=== PATIENT | male | born 1980 | race Caucasian/White ===

== ENCOUNTER → 2017-10-04 | Outpatient (CLI) | payer OTHER ==
--- NOTE | 2017-10-04 17:34 | DIAGNOSTIC IMAGING REPORT ---
MRI OF THE LUMBAR SPINE WITHOUT IV CONTRAST CLINICAL HISTORY: Low back pain. COMPARISON STUDY: No priors TECHNIQUE: MRI of the lumbar spine is performed utilizing various T1 and T2-weighted sequences in the axial and sagittal planes. IV contrast was not administered for this examination. FINDINGS: Lumbar spine: Vertebral body height is maintained throughout the lumbar spine. There are bilateral pars defects at L5 with 8 mm of anterolisthesis at L5-S1. Alignment is otherwise preserved. The transverse and spinous processes appear intact. No destructive bony lesion is seen. Intervertebral discs: Mild degenerative disc desiccation is seen throughout the lumbar spine, greatest at L4-L5 and L5-S1. Mild to moderate loss of height is seen at L5-S1. Spinal cord: The visualized spinal cord is normal in morphology and signal intensity. The conus medullaris terminates at the level of L2. The nerve roots of the cauda equina are normal in morphology. L1-L2: Unremarkable. L2-L3: Unremarkable. L3-L4: There is minimal disc bulge. The central canal and neural foramina are widely patent. L4-L5: There is broad-based posterior disc bulge with annular fissure. This causes mild bilateral subarticular stenosis. The central canal and neural foramina are widely patent. Mild facet arthropathy is of no consequence. L5-S1: There is posterior disc bulge eccentric to left. There is no significant acquired compromise of the central canal at this level. The disc bulge causes left-sided subarticular stenosis and may impinge on the exiting left L5 nerve root. Facet arthropathy and anterolisthesis cause mild to moderate bilateral neural foraminal stenosis. Sacrum: The visualized sacrum is normal in morphology and signal intensity. Soft tissues: The paraspinous soft tissues are within normal limits. The partially imaged retroperitoneal structures are grossly normal but incompletely assessed. IMPRESSION: 1. There are bilateral pars defects at L5 with grade 1 anterolisthesis at L5-S1. 2. There is no disc herniation or significant acquired compromise of the central canal. 3. Degenerative disc disease as above, greatest at L4-L5 and L5-S1. See discussion for detailed level analysis. Dictated: 10/04/2017 3:39 PM Transcribed: 10/04/2017 5:34 PM [place] Electronically signed by: Justo Redd M.D. 10/05/2017 7:12 AM Dictated Date/Time: 10/04/2017 3:39 PM
== END | disposition home or self-care (01) ==
LOC: C.MRIBC 14:39
PROVIDERS: ATTEND Family Medicine
DX: G89.29 Other chronic pain (principal); M43.16 Spondylolisthesis, lumbar region; M51.17 Intervertebral disc disorders with radiculopathy, lumbosacral region

== ENCOUNTER → 2018-03-27 | Outpatient (CLI) | payer OTHER | END | disposition home or self-care (01) | LOC: C.PATHSPEC 11:58 | PROVIDERS: ATTEND Urology | DX: Z30.2 Encounter for sterilization (principal) ==

== ENCOUNTER 2020-03-06 17:26 | Inpatient (IN) ==
--- OUTSIDE RECORDS SUMMARY | 2020-03-06 17:29 | External Medical Summary | Continuity of Care Document ---
:1980 Author Name Dennis Chong, Provider Address Unavailable Unavailable , Care Team Providers Name Role Phone Sharifa MEDRANO Ashley Unavailable [email or web address], Irene Unavailable [email or web address] Unavailable Unavailable Unavailable Unavailable Unavailable Assessments Assessed Problems:Type 2 diabetes mellitusObesityBMI 38.0-38.9,adult Problems BMI 38.0-38.9,adult (V85.38) (Z68.38) Obesity (278.00) (E66.9) Type 2 diabetes mellitus (250.00) (E11.9) BMI 39.0-39.9,adult (V85.39) (Z68.39) Dyslipidemia (272.4) (E78.5) Metabolic syndrome (277.7) (E88.81) Encounter for vasectomy (V25.2) (Z30.2) Morbid obesity (278.01) (E66.01) Primary hypothyroidism (244.9) (E03.9) Allergies and Adverse Reactions Iodides (Allergy) iodine (Allergy) Medications metFORMIN HCl - 500 MG Oral Tablet; take 1 tablet by m outh daily with food Castillo Rey Start: 13-Mar-2018 Quantity: 30 Refills: 0 Trulicity 1.5 MG/0.5ML Subcutaneous Solu tion Pen-injector; inject ONE pen weekly. DO Sharifa Ashley Start: 13-Mar-2018 Quantity: 1 4 x 0.5 ML Pen Refills: 6 Atorvastatin Calcium 10 MG Oral Tablet; Take 1 tablet daily Start: 13-Mar-2018 Refills: 0 90 Tablet Bottle Levothyroxine Sodium 25 MCG Oral Tablet; TAKE 1 TABLET BY MOUTH EVERY MORNING ON AN EMPTY STOMACH WITH A FULL GLASS OF WATER, WAIT 30 MINUTES TO EAT Start: 13-Mar-2018 Quantity: 30 Refills: 5 Clindamycin Phosphate 1 % External Lotio n; APPLY SPARINGLY AND MASSAGE IN TWICE DAILY. Start: 13-Mar-2018 Refills: 0 60 ML Bottle Diclofenac Sodium 1 % Transdermal Gel; A PPLY TO LOWER EXTREMITIES, 4 GM OF GEL TO AFFECTED AREA 4 TIMES DAILY. DO NOT APPLY MORE THAN 16 GM DAILY TO ANY ONE AFFECTED JOINT. Start: 13-Mar-2018 Refills: 0 100 GM Tube OneTouch Ultra Blue In Vitro Strip; test one time daily Start: 13-Mar-2018 Refills: 0 Vitamin B-12 1000 MCG Sublingual Tablet Sublingual; PLACE TA BLET Daily Start: 14-Mar-2018 Refills: 0 Potassium 99 MG Oral Tablet; TAKE 1 TABLET DAILY. Start: 14-Mar-2018 Refills: 0 Cinnamon 500 MG Oral Capsule; TAKE 2 CAPSULE Before meals Start: 14-Mar-2018 Refills: 0 Magnesium Oxide 400 MG Oral Tablet; TAKE 1 TABLET DAILY. Start: 14-Mar-2018 Quantity: 30 Refills: 3 Vitamin D 1000 UNIT TABS; take wiith largest meal of the day Start: 14-Mar-2018 Refills: 0 Dexamethasone 1 MG Oral Tablet; TAKE 1 T ABLET at 11pm, night before cortisol lab draw. Castillo Rey Start: 14-Mar-2018 Quantity: 1 Refills: 0 Procedures History of Tonsillectomy Status: Complet ed History of vasectomy Status: Completed Immunizations Immunizations not documented Family History Unknown Family Member Family history of malignant neoplasm of Status: Active Comments: Family History prostate (V16.42) (Z80.42) Family history of diabetes mellitus (V18.0) Status: Active Comments: Family History (Z83.3) Family history of cardiac disorder (V17.49) Status: Active Comments: Family History (Z82.49) Father Family history of kidney stones (V18.69) (Z84.1) Status: Act hannah Mother Family history of malignant neoplasm of ovary (V16.41) (Z80. 41) Status: Active Family history of Peritoneal carcinoma (158.9) (C48.2) Statu s: Active Social History - Smoking Status Never smoked tobacco Interventions Discussion/SummaryRegarding his diabetes, discussed carbohydrate counting and limiting simple sugars and starch portions. Increase fiber sources. All beverages must be sugar free. Discussed plate method of portion control. Discussed lowfat diet. Discussed exercise program. Continue home blood sugar monitoring. Follow on medications. He is doing well on the increased Trulicity to 1.5 milligrams weekly and has noticed increased satiety, and as a result has been able to eat smaller portions. Due for HGB A1c, order is inthe [facility], and he is to have that done, along with his thyroid testing before he sees next month. Will work on improved diet, exercise, and weight loss. Discussed ways to stimulate metabolism including eating a healthy breakfast within 1 hr of waking,more frequent, but smaller meals, increase water, fruits, vegetables, and lean proteins, increasing physical activity, and good sleep hygiene. He will continue to work on the plate method of portion con trol, and eating regularly, planning and packing for healthy meals and snacks. Instruction on including lean proteins and fruits/vegetables with every meal and snack were given. Instruction was given on the importance of a nutritious breakfast within 1 hour of waking, and healthy breakfast ideas were given. Instruction was given on eating regularly, but decreasing overall portion sizes, and healthy snack ideas were given. He was instructed to try to eat at the table and not in front of any screen, so as to avoid distracted eating, and an explanation was given as to why this is so important. He willtry to take a regular lunch break rather than eating at his desk. He is doing better with this Instruction was given to try to increase consumption of vegetables and fresh fruits to a total of 5 servings or more per day. Other then non-fat or low-fat milk, he was instructed to drink only non caloric beverages and increase pure water consumption to at least 64-80 oz per day (with an instruction to tryto make at least every other beverage water). We discussed a reasonable exercise plan, given his abilities, as follows: He is to continue his walking program daily (10 min 3x daily after meals) and scheduling a visit to the gym at least once week. Counseling done. Discussed stress management. Discussed importance of good self-care. Discussed managing cues and cravings and comfort eating. Discussed increasing physical activity. Discussed importance of positive self- talk and re-phrasing negative statements in a more positive way that enables hea lthy change. We also discussed making changes out of inherent worth and value rather than criticism. Discussed managing holiday eating. He is aware that I am leaving the area next month and I have recommended that he followup with Dr. Paris Robin at [facility] for weight management and he was given her contact info today. Approximately 30 Minutes was spent with the patient. Greater than 50% of time with patient was spent on counseling and coordinating care. Counseling time included counseling on chronic disease management, and healthy lifestyle changes including diet, exercise, and behavioral changes, which were very specific to the patient's medical issues, limitations, and needs. Plan of Treatment Planned Observations Planned Goals not documented Results No Known Results Results not documented Encounters Appointment; Urology, Nursing Station 07-Jun-2018 8:20 Encounter Diagnosis: Problem not documented Appointment; Ashley Skaggs DO 16-May-2018 9:00 Encounter Diagnosis: Problem not documented Appointment; Urology, Nursing Station 10-May-2018 8:20 Encounter Diagnosis: Problem not documented Appointment; Bhargav Gauthier M.D. 10-Apr-2018 16:30 Encounter Diagnosis: Problem not documented Appointment; Irma Merida R.D. 04-Apr-2018 9:00 Encounter Diagnosis: Problem not documented Appointment; Bhargav Gauthier M.D. 27-Mar-2018 15:10 Encounter Diagnosis: Problem not documented Appointment; Urology, Room 8 27-Mar-2018 15:00 Encounter Diagnosis: Problem not documented Appointment; Irene Rey M.D. 14-Mar-2018 9:00 Encounter Diagnosis: Problem not documented Appointment; Nurse Scarlet 14-Mar-2018 8:30 Encounter Diagnosis: Problem not documented Appointment; Ashley Skaggs DO 20-Jun-2018 8:40 Encounter Diagnosis: Problem not documented
[2020-03-06] MEDS ORDERED: FAMOTIDINE 20MG IV PUSH 20 MG/5 ML SYR IV STA (17:36)
[2020-03-06] MEDS ORDERED: ACETAMINOPHEN 1,000 MG/100 ML VIAL IV STA (17:36)
[2020-03-06] MEDS ORDERED: PROCHLORPERAZINE 2 ML IV ONE (17:36)
[2020-03-06] MEDS ORDERED: DiphenhydrAMINE HCL 50 MG/ML VIAL IV STA (17:36)
[2020-03-06] MEDS ORDERED: SODIUM CHLORIDE 0.9% 1000ML 1,000 ML IV ONE (17:39)
[2020-03-06] MEDS ORDERED: SODIUM CHLORIDE 0.9% 1000ML 2,000 ML IV ONE (18:11)
[2020-03-06 18:17] LABS: Basophils # (auto) 0.02 K/uL (0-0.2); Basophils % (auto) 0.2 %; Eosinophils # (auto) 0.05 K/uL (0-0.5); Eosinophils % (auto) 0.5 %; Hematocrit (blood only) 38.7 % (42-52); Hemoglobin 14.2 g/dL (14.0-18.0); Immature Granulocytes # (auto) 0.03 K/uL (0.00-0.02); Immature Granulocytes % (auto) 0.3 %; Lymphocytes # (auto) 1.59 K/uL (1.2-3.4); Lymphocytes % (auto) 15.5 %; Mean Corpuscular Hemoglobin 31.4 pg (25-34); Mean Corpuscular Hgb Conc 36.7 g/dL (32-36); Mean Corpuscular Volume 85.6 fL (80-100); Mean Platelet Volume 9.5 fL (7.4-10.4); Monocytes # (auto) 0.63 K/uL (0.11-0.59); Monocytes % (auto) 6.2 %; Neutrophils # (auto) 7.91 K/uL (1.4-6.5); Neutrophils % (auto) 77.3 %; Platelet Count 299 K/uL (130-400); RDW Coefficient of Variation 11.7 % (11.5-14.5); RDW Standard Deviation 36.4 fL (36.4-46.3); Red Blood Count 4.52 M/uL (4.7-6.1); White Blood Count 10.23 K/uL (4.8-10.8)
[2020-03-06 18:34] LABS: Partial Thromboplastin Time 28.5 Seconds (21.0-31.0); Prothrombin Time 10.9 Seconds (9.0-12.0)
[2020-03-06 18:35] LABS: Alanine Aminotransferase 30 U/L (12-78); Albumin Level 4.2 gm/dl (3.4-5.0); Aspartate Aminotransferase 23 U/L (15-37); BUN Creatinine Ratio 12.2 (10-20); Blood Urea Nitrogen 10 mg/dl (7-18); Calcium 8.4 mg/dl (8.5-10.1); Carbon Dioxide 17 mmol/L (21-32); Chloride 91 mmol/L (98-107); Creatinine Clr Calc Pharmacy 123.9 ml/min; Est GFR (Non-African American) 112.2; Glucose 166 mg/dl (70-99); Lipase 84 U/L (73-393); Magnesium 1.5 mg/dl (1.8-2.4); Potassium 3.4 mmol/L (3.5-5.1); Sodium 120 mmol/L (136-145)
--- NOTE | 2020-03-06 18:44 | XRay Report ---
XR chest 1V portable CLINICAL HISTORY: Chest pain. Fever. COMPARISON STUDY: No previous studies for comparison. FINDINGS: Lung volumes are normal. Lungs are clear. There is no pneumothorax or pleural effusion. Car diac size is normal. Mediastinal contours are normal. There is no evidence for pulmonary edema. IMPRESSION: No acute cardiopulmonary findings. ACT 112: Negative or not required by law. Electronically signed by: Jin Shearer M.D. 03/06/2020 6:42 PM
[2020-03-06 18:52] LABS: Albumin Globulin Ratio 1.4 (0.9-2); Alkaline Phosphatase 57 U/L (45-117); Bilirubin,Total 1.2 mg/dl (0.2-1); Globulin 2.9 gm/dl (2.5-4.0); Phosphorus 1.3 mg/dl (2.5-4.9); Total Protein 7.1 gm/dl (6.4-8.2); Troponin I < 0.015 ng/ml (0-0.045)
--- NOTE | 2020-03-06 18:59 | Emergency Department Note ---
Impression & Plan Metabolic acidosis, Fever, Nausea & vomiting, Acute hyponatremia, Hypokalemia, Hypomagnesemia, Hypophosphatemia ED Provider Note NAME: DOC MALDONADO AGE: 39 SEX: M ARRIVES VIA: Ambulance INFORMANT: Patient, ED PROVIDER(S): Lionel Vega MD CHIEF COMPLAINT: Abdominal pain, n/v PLAN: Disposition: Admit MEDICAL DECISION MAKING: The patient is a pleasant 39-year-old gentleman who presents emergency department with acute onset nausea vomiting since this morning we reports he is unable to keep anything down. He denies any similar episodes in the past. He does report recently taking ibuprofen regularly for some back pain. He denies any regular alcohol use. He denies any marijuana use. He is a non-smoker. Prior to today the port patient reports he has been feeling healthy denies fevers chills, cough congestion, diarrhea, urinary symptoms. He denies any known contacts with individuals diagnosed with COVID-19. However he does report he has been going out in public without a mask. On arrival the patient is uncomfortable/diaphoretic. febrile to 38.0 with HR 100s and vital signs otherwise stable. He has mild epigastric tenderness without guarding or rebound. He appears clinically dry. EKG unremarkable without evidence of acute ischemia. CXR negative. WBC, hemoglobin and platelets within normal limits. Hyponatremia with sodium of 120 with potassium of 3.4, magnesium 1.5 and phosphorus 1.3. He does have a metabolic acidosis with bicarb of 17 and anion gap 12. Glucose 166 but no h/o diabetes. LFTs are unremarkable. Lipase is not elevated. Troponin negative/undetectable. CT ab pelvis was performed an d negative for acute process. Given the patient's fevers with unclear etiology a COVID-19 test was performed. However it certainly could be related to foodborne illness versus viral gastroenteritis. Upon reevaluation the patient was feeling improved after IV fluid hydration (3L NSS bolus), antacids and antiemetics. However given his significant lab abnormalities reasonable to proceed with admission. Patient is agreeable with this. Case was discussed with Dr. Medina, [facility] hospitalist, who will evaluate the patient for admission. Triage Nursing notes reviewed and agree them. Prior medical records reviewed Vital Signs: reviewed and remarkable for no significant abnormalities Differential diagnosis: Appendicitis, testicular torsion, infections, diverticulitis, UTI, obstruction, mesenteric ischemia, aortic pathology, inflammatory bowel disease, renal colic, PUD, pancreatitis, biliary pathology, hernia, volvulus, constipation, as well as other pathologies. ER treatment provided: See below. Diagnostics interpreted by me: ECG: Normal sinus rhythm, 93 bpm, no ectopy, no overt ST elevation or depression, QTC 460, QRS 96. Cardiac Monitoring: An order for continuous cardiac monitoring was placed and demonstrated Normal sinus rhythm, 93 bpm, no ectopy. Laboratory studies: See below Imaging studies: XR chest 1V portable CLINICAL HISTORY: Chest pain. Fever. COMPARISON STUDY: No previous studies for comparison. FINDINGS: Lung volumes are normal. Lungs are clear. There is no pneumothorax or pleural effusion. Cardiac size is normal. Mediastinal contours are normal. There is no evidence for pulmonary edema. IMPRESSION: No acute cardiopulmonary findings. -- CT OF THE ABDOMEN AND PELVIS WITH CONTRAST CLINICAL HISTORY: Abdominal pain, nausea and vomiting. COMPARISON STUDY: None. TECHNIQUE: Following IV administration of 93 mL of Optiray-320, axial images of the abdomen and pelvis were obtained from the lung bases to the proximal femurs. Images were reviewed in the axial, sagittal, and coronal planes. IV contrast was administered without complication. Automated exposure control was utilized for the study. A dose lowering technique was utilized adhering to the principles of ALARA. CT DOSE: 1383.92 mGy.cm FINDINGS: Lung bases are unremarkable. There is probable fatty infiltration of the liver. No pneumatosis, free air or portal venous gas is present. The spleen, adrenal glands, kidneys and pancreas are unremarkable. There is no hydronephrosis. Nephrograms are symmetric. There is no evidence for a bowel obstruction. The appendix is normal. The caliber and wall thickness of small and large bowel are normal. Mild bladder wall thickening is likely due to underdistention. No lymphadenopathy is present. There is no abscess. Grade I anterolisthesis of L5 on S1 due to bilateral L5 pars defects is noted. IMPRESSION: 1. Normal appendix. No bowel obstruction. No bowel wall thickening. 2. Mild bladder wall thickening. This is likely due to underdistention although could be correlated with urinalysis. 3. Probable fatty infiltration of the liver. Consultation(s): Case was discussed with Dr. Medina, [facility] hospitalist, who will evaluate the patient for admission. HPI: The patient is a pleasant 39-year-old gentleman who presents emergency department with acute onset nausea vomiting since this morning we reports he is unable to keep anything down. He denies any similar episodes in the past. He does report recently taking ibuprofen regularly for some back pain. He denies any regular alcohol use. He denies any marijuana use. He is a non-smoker. Prior to today the port patient reports he has been feeling healthy denies fevers chills, cough congestion, diarrhea, urinary symptoms. He denies any known contacts with individuals diagnosed with COVID-19. However he does report he has been going out in public without a mask. ROS: See above HPI for pertinent positives & negatives. A total of 10 systems reviewed and were otherwise negative. PAST MEDICAL HISTORY:See Below PAST SURGICAL HISTORY:See Below FAMILY HISTORY:See Below SOCIAL HISTORY:See Below HOME MEDICATIONS:See Below ALLERGIES:See Below VITALS:See Below PHYSICAL EXAMINATION: GENERAL: Awake, alert, uncomfortable-appearing, in no distress HENT: Normocephalic, atraumatic. Oropharynx with dry mucous membranes and otherwise unremarkable. EYES: Normal conjunctiva. Sclera non-icteric. NECK: Supple. No nuchal rigidity. FROM. No JVD. RESPIRATORY: Clear to auscultation. CARDIAC: Regular rate, normal rhythm. Extremities warm and well perfused. Pulses equal. ABDOMEN: Soft, non-distended. Mild epigastric tenderness to palpation. No rebound or guarding. No masses. RECTAL: Deferred. MUSCULOSKELETAL: Chest examination reveals no tenderness. The back is symmetrical on inspection without obvious abnormality. There is no CVA tenderness to palpation. No joint edema. LOWER EXTREMITIES: Calves are equal size bilaterally and non-tender. No edema. No discoloration. NEURO: Normal sensorium. No sensory or motor deficits noted. SKIN: Diaphoretic. No rash or jaundice noted. ED COURSE: Critical Care: I have personally spent greater than 35 minutes of critical care time in the direct management of this patient. This includes bedside care, interpretation of diagnostic studies, and testing, discussion with consultants, patient, and family members, and other required patient management activities. This 35 minutes is in excess of all separately billable procedures. 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 Beliefs That Will Affect Care: None Current Living Situation: Family Other Information That Helps Us Care for You: No Feels Safe at Home: Yes Safety Concerns: Afraid for Self Smoking Status: Never smoker Hx Alcohol Use: No Hx Substance Use: No Allergies Allergies Allergy/AdvReac Type Severity Reaction Status Date / Time iodine Allergy Rash Verified 03/06/20 20:14 Home Meds Home Medications Medication Instructions Recorded Confirmed Potassium Tab 99 mg PO DAILY 03/06/20 03/06/20 atorvastatin [Lipitor] 10 mg PO DAILY 03/06/20 03/06/20 cholecalciferol (vitamin D3) 25 mcg PO DAILY 03/06/20 03/06/20 [Vitamin D3] cinnamon bark [Cinnamon] 500 mg PO DAILY 03/06/20 03/06/20 diclofenac sodium [Voltaren] 4 g TOPICAL QID PRN 03/06/20 03/06/20 dulaglutide [Trulicity] 0.75 mg SUBCUT WK 03/06/20 03/06/20 ferrous sulfate [Iron (ferrous 0 mg PO DAILY 03/06/20 03/06/20 sulfate)] levothyroxine 25 mcg PO DAILY 03/06/20 03/06/20 magnesium oxide 400 mg PO DAILY 03/06/20 03/06/20 metformin 500 mg PO DAILY 03/06/20 03/06/20 multivitamin 1 tab PO DAILY 03/06/20 03/06/20 vitamin B complex 1 tab PO DAILY 03/06/20 03/06/20 Results & Data (ED) Vital Signs Vital Signs - 24 hr 03/06/20 17:26 03/06/20 17:30 03/06/20 17:32 Temperature 38 C H Temperature Source Oral Pulse Rate 94 H 94 H 95 H Pulse Rate [Finger] Pulse Rate from SpO2 Sensor 96 H Pulse Rhythm Regular Regular Pulse Strength Normal Respiratory Rate 26 H 26 H 24 Respiratory Pattern Tachypnea Blood Pressure 106/87 106/87 Blood Pressure [Left Arm] Blood Pressure Mean 93 97 Blood Pressure Mean [Left Arm] Blood Pressure Position Lying Pulse Oximetry 99 99 99 Oxygen Delivery Method Room Air Room Air Sepsis Recent Fever Within 48 Hours Yes Sepsis New/Unexplained Change in Mental Status No Sepsis Action Taken by Nursing Physician Notified 03/06/20 17:34 03/06/20 17:45 03/06/20 17:54 Temperature Temperature Source Pulse Rate 95 H 100 H 102 H Pulse Rate [Finger] Pulse Rate from SpO2 Sensor 97 H 100 H 102 H Pulse Rhythm Pulse Strength Respiratory Rate 23 22 23 Respiratory Pattern Blood Pressure 149/97 H Blood Pressure [Left Arm] Blood Pressure Mean 121 Blood Pressure Mean [Left Arm] Blood Pressure Position Pulse Oximetry 99 98 100 Oxygen Delivery Method Sepsis Recent Fever Within 48 Hours Sepsis New/Unexplained Change in Mental Status Sepsis Action Taken by Nursing 03/06/20 18:00 03/06/20 18:01 03/06/20 18:15 Temperature Temperature Source Pulse Rate 90 87 87 Pulse Rate [Finger] Pulse Rate from SpO2 Sensor 90 88 88 Pulse Rhythm Pulse Strength Respiratory Rate 22 20 22 Respiratory Pattern Blood Pressure 142/110 H Blood Pressure [Left Arm] Blood Pressure Mean 116 Blood Pressure Mean [Left Arm] Blood Pressure Position Pulse Oximetry 99 100 98 Oxygen Delivery Method Sepsis Recent Fever Within 48 Hours Sepsis New/Unexplained Change in Mental Status Sepsis Action Taken by Nursing 03/06/20 18:30 03/06/20 18:31 03/06/20 19:25 Temperature Temperature Source Pulse Rate 81 87 Pulse Rate [Finger] 88 Pulse Rate from SpO2 Sensor 89 85 Pulse Rhythm Pulse Strength Respiratory Rate 16 22 24 Respiratory Pattern Blood Pressure 131/93 Blood Pressure [Left Arm] 140/87 Blood Pressure Mean 112 Blood Pressure Mean [Left Arm] 104 Blood Pressure Position Pulse Oximetry 96 97 98 Oxygen Delivery Method Room Air Sepsis Recent Fever Within 48 Hours Sepsis New/Unexplained Change in Mental Status Sepsis Action Taken by Nursing 03/06/20 20:09 03/06/20 20:24 Temperature Temperature Source Pulse Rate Pulse Rate [Finger] 92 H 95 H Pulse Rate from SpO2 Sensor Pulse Rhythm Pulse Strength Respiratory Rate 18 18 Respiratory Pattern Blood Pressure Blood Pressure [Left Arm] 154/101 H 172/98 H Blood Pressure Mean Blood Pressure Mean [Left Arm] 118 122 Blood Pressure Position Pulse Oximetry 98 95 Oxygen Delivery Method Room Air Room Air Sepsis Recent Fever Within 48 Hours Sepsis New/Unexplained Change in Mental Status Sepsis Action Taken by Nursing Laboratory Data Attestation: I reviewed the patient's lab results. Result diagrams: 03/06/20 18:01 03/06/20 18:01 Lab Results 03/06/20 03/06/20 03/06/20 Range/Units 17:51 18:01 18:01 WBC 10.23 (4.8-10.8) K/uL RBC 4.52 L (4.7-6.1) M/uL Hgb 14.2 (14.0-18.0) g/dL Hct 38.7 L (42-52) % MCV 85.6 (80-100) fL MCH 31.4 (25-34) pg MCHC 36.7 H (32-36) g/dL RDW Std Deviation 36.4 (36.4-46.3) fL RDW Coeff of Jordy 11.7 (11.5-14.5) % Plt Count 299 (130-400) K/uL MPV 9.5 (7.4-10.4) fL Immature Gran % (Auto) 0.3 % Neut % (Auto) 77.3 % Lymph % (Auto) 15.5 % [place] % (Auto) 6.2 % Eos % (Auto) 0.5 % Baso % (Auto) 0.2 % Neut # (Auto) 7.91 H (1.4-6.5) K/uL Lymph # (Auto) 1.59 (1.2-3.4) K/uL [place] # (Auto) 0.63 H (0.11-0.59) K/uL Eos # (Auto) 0.05 (0-0.5) K/uL Baso # (Auto) 0.02 (0-0.2) K/uL Immature Gran # (Auto) 0.03 H (0.00-0.02) K/uL PT 10.9 (9.0-12.0) Seconds INR 1.0 (0.9-1.1) APTT 28.5 (21.0-31.0) Seconds PTT Ratio 1.0 Sodium (136-145) mmol/L Potassium (3.5-5.1) mmol/L Chloride (98-107) mmol/L Carbon Dioxide (21-32) mmol/L Anion Gap (3-11) BUN (7-18) mg/dl Creatinine (0.6-1.4) mg/dl Est Cr Clr Drug Dosing ml/min Est GFR ( Amer) Est GFR (Non-Af Amer) BUN/Creatinine Ratio (10-20) Glucose (70-99) mg/dl POC Glucose 194 H (70-99) mg/dl Osmolality (280-300) mOsm/kg Calcium (8.5-10.1) mg/dl Phosphorus (2.5-4.9) mg/dl Magnesium (1.8-2.4) mg/dl Total Bilirubin (0.2-1) mg/dl AST (15-37) U/L ALT (12-78) U/L Alkaline Phosphatase (45-117) U/L Troponin I (0-0.045) ng/ml Total Protein (6.4-8.2) gm/dl Albumin (3.4-5.0) gm/dl Globulin (2.5-4.0) gm/dl Albumin/Globulin Ratio (0.9-2) Lipase (73-393) U/L Ethyl Alcohol mg/dL (0-3) mg/dl SARS-CoV-2 RNA (RT-PCR) 03/06/20 03/06/20 03/06/20 Range/Units 18:01 18:01 18:06 WBC (4.8-10.8) K/uL RBC (4.7-6.1) M/uL Hgb (14.0-18.0) g/dL Hct (42-52) % MCV (80-100) fL MCH (25-34) pg MCHC (32-36) g/dL RDW Std Deviation (36.4-46.3) fL RDW Coeff of Jordy (11.5-14.5) % Plt Count (130-400) K/uL MPV (7.4-10.4) fL Immature Gran % (Auto) % Neut % (Auto) % Lymph % (Auto) % [place] % (Auto) % Eos % (Auto) % Baso % (Auto) % Neut # (Auto) (1.4-6.5) K/uL Lymph # (Auto) (1.2-3.4) K/uL [place] # (Auto) (0.11-0.59) K/uL Eos # (Auto) (0-0.5) K/uL Baso # (Auto) (0-0.2) K/uL Immature Gran # (Auto) (0.00-0.02) K/uL PT (9.0-12.0) Seconds INR (0.9-1.1) APTT (21.0-31.0) Seconds PTT Ratio Sodium 120 L (136-145) mmol/L Potassium 3.4 L (3.5-5.1) mmol/L Chloride 91 L (98-107) mmol/L Carbon Dioxide 17 L (21-32) mmol/L Anion Gap 12.0 H (3-11) BUN 10 (7-18) mg/dl Creatinine 0.82 (0.6-1.4) mg/dl Est Cr Clr Drug Dosing 123.9 ml/min Est GFR ( Amer) 130.0 Est GFR (Non-Af Amer) 112.2 BUN/Creatinine Ratio 12.2 (10-20) Glucose 166 H (70-99) mg/dl POC Glucose (70-99) mg/dl Osmolality 252 L (280-300) mOsm/kg Calcium 8.4 L (8.5-10.1) mg/dl Phosphorus 1.3 L* (2.5-4.9) mg/dl Magnesium 1.5 L (1.8-2.4) mg/dl Total Bilirubin 1.2 H (0.2-1) mg/dl AST 23 (15-37) U/L ALT 30 (12-78) U/L Alkaline Phosphatase 57 (45-117) U/L Troponin I < 0.015 (0-0.045) ng/ml Total Protein 7.1 (6.4-8.2) gm/dl Albumin 4.2 (3.4-5.0) gm/dl Globulin 2.9 (2.5-4.0) gm/dl Albumin/Globulin Ratio 1.4 (0.9-2) Lipase 84 (73-393) U/L Ethyl Alcohol mg/dL < 3.0 (0-3) mg/dl SARS-CoV-2 RNA (RT-PCR) 03/06/20 Range/Units 18:24 WBC (4.8-10.8) K/uL RBC (4.7-6.1) M/uL Hgb (14.0-18.0) g/dL Hct (42-52) % MCV (80-100) fL MCH (25-34) pg MCHC (32-36) g/dL RDW Std Deviation (36.4-46.3) fL RDW Coeff of Jordy (11.5-14.5) % Plt Count (130-400) K/uL MPV (7.4-10.4) fL Immature Gran % (Auto) % Neut % (Auto) % Lymph % (Auto) % [place] % (Auto) % Eos % (Auto) % Baso % (Auto) % Neut # (Auto) (1.4-6.5) K/uL Lymph # (Auto) (1.2-3.4) K/uL [place] # (Auto) (0.11-0.59) K/uL Eos # (Auto) (0-0.5) K/uL Baso # (Auto) (0-0.2) K/uL Immature Gran # (Auto) (0.00-0.02) K/uL PT (9.0-12.0) Seconds INR (0.9-1.1) APTT (21.0-31.0) Seconds PTT Ratio Sodium (136-145) mmol/L Potassium (3.5-5.1) mmol/L Chloride (98-107) mmol/L Carbon Dioxide (21-32) mmol/L Anion Gap (3-11) BUN (7-18) mg/dl Creatinine (0.6-1.4) mg/dl Est Cr Clr Drug Dosing ml/min Est GFR ( Amer) Est GFR (Non-Af Amer) BUN/Creatinine Ratio (10-20) Glucose (70-99) mg/dl POC Glucose (70-99) mg/dl Osmolality (280-300) mOsm/kg Calcium (8.5-10.1) mg/dl Phosphorus (2.5-4.9) mg/dl Magnesium (1.8-2.4) mg/dl Total Bilirubin (0.2-1) mg/dl AST (15-37) U/L ALT (12-78) U/L Alkaline Phosphatase (45-117) U/L Troponin I (0-0.045) ng/ml Total Protein (6.4-8.2) gm/dl Albumin (3.4-5.0) gm/dl Globulin (2.5-4.0) gm/dl Albumin/Globulin Ratio (0.9-2) Lipase (73-393) U/L Ethyl Alcohol mg/dL (0-3) mg/dl SARS-CoV-2 RNA (RT-PCR) Cancelled Administered Medications Discontinued Medications Diphenhydramine HCl (Benadryl) 25 mg IV NOW STA Stop: 03/06/20 17:37 Last Admin: 03/06/20 17:49 Dose: 25 mg Documented by: [id number] Acetaminophen (Ofirmev) 1,000 mg in 100 mls @ 400 mls/hr IV NOW STA Stop: 03/06/20 17:50 Last Infusion: 03/06/20 18:04 Dose: 0 mls/hr Documented by: [id number] Admin: 03/06/20 17:49 Dose: 400 mls/hr Documented by: [id number] Famotidine (Pepcid 20mg Iv Push) 20 mg in 5 mls @ 2.5 mls/min IV NOW STA Stop: 03/06/20 17:37 Last Admin: 03/06/20 17:50 Dose: 2.5 mls/min Documented by: [id number] Prochlorperazine (Compazine) 2 mls @ 1 mls/min IV ONE ONE Stop: 03/06/20 17:37 Last Admin: 03/06/20 17:50 Dose: 1 mls/min Documented by: [id number] Sodium Chloride (Nss 1000ml) 1,000 mls @ 999 mls/hr IV .Q1H1M ONE Stop: 03/06/20 18:39 Last Infusion: 03/06/20 18:36 Dose: 0 mls/hr Documented by: [id number] Admin: 03/06/20 17:49 Dose: 999 mls/hr Documented by: [id number] Sodium Chloride (Nss 1000ml) 2,000 mls @ 999 mls/hr IV .Q2H1M ONE Stop: 03/06/20 20:11 Last Infusion: 03/06/20 20:16 Dose: 0 mls/hr Documented by: [id number] Admin: 03/06/20 18:11 Dose: 999 mls/hr Documented by: [id number] Magnesium Sulfate/Dextrose (Magnesium Sulfate / D5w) 1 gm in 100 mls @ 200 mls/hr IV Q30M KARLY Stop: 03/06/20 19:42 Last Infusion: 03/06/20 20:32 Dose: 0 mls/hr Documented by: [id number] Admin: 03/06/20 20:00 Dose: 200 mls/hr Documented by: [id number] Infusion: 03/06/20 19:56 Dose: 0 mls/hr Documented by: [id number] Admin: 03/06/20 19:23 Dose: 200 mls/hr Documented by: [id number] Potassium Phosphate 9 mmol/ (Sodium Chloride) 253 mls @ 88 mls/hr IV ONE ONE Stop: 03/06/20 22:07 Last Admin: 03/06/20 19:28 Dose: 88 mls/hr Documented by: [id number] Ioversol (Optiray 320 100ml) 93 ml IV ONCE PRN PRN Reason: Interaction Checking Stop: 03/10/20 19:10 Last Admin: 03/06/20 19:12 Dose: 93 ml Documented by: [id number] Potassium Chloride (Klor-Con M20) 20 meq PO NOW ONE Stop: 03/06/20 20:21 Last Admin: 03/06/20 20:22 Dose: 20 meq Documented by: [id number] Blood Pressure Blood Pressure Findings: Elevated blood pressure Blood Pressure Disposition: elevated BP felt to be situational Discharge Plan Visit Data *Final* Discharge Date/Time: 03/06/20 21:27 Chief Complaint: Illness ED Provider: Lionel Vega Discharge Problem: Metabolic acidosis, Fever, Nausea & vomiting, Acute hyponatremia, Hypokalemia, Hypomagnesemia, Hypophosphatemia Patient Disposition: Admitted As Inpatient Discharge Instructions Interventions: ED Discharge Assessment Last Done: 03/06/20 21:27 Discharge Problem: Fever Qualifiers: Fever type: unspecified Qualified Code(s): R50.9 - Fever, unspecified Nausea & vomiting Qualifiers: Vomiting type: unspecified Vomiting Intractability: non-intractable Qualified Code(s): R11.2 - Nausea with vomiting, unspecified
[2020-03-06] MEDS ORDERED: POTASSIUM PHOS 3 MMOL/1 ML INFUSION IV STA (19:01)
[2020-03-06] MEDS ORDERED: IOVERSOL 100ml IV PRN (19:11)
[2020-03-06] MEDS ORDERED: POTASSIUM PHOSPHATE 9 MMOL in SODIUM CHLORIDE 0.9% 250 ML IV ONE (19:15)
[2020-03-06] MEDS: MAGNESIUM SULFATE / D5W 1 GM/100 ML BAG IV SCH ×2 (19:23→20:00)
--- NOTE | 2020-03-06 19:24 | CT Scan Report ---
CT OF THE ABDOMEN AND PELVIS WITH CONTRAST CLINICAL HISTORY: Abdominal pain, nausea and vomiting. COMPARISON STUDY: None. TECHNIQUE: Following IV administration of 93 mL of Optiray-320, axial images of the abdomen and pelvi s were obtained from the lung bases to the proximal femurs. Images were reviewed in the axial, sagitt al, and coronal planes. IV contrast was administered without complication. Automated exposure contro l was utilized for the study. A dose lowering technique was utilized adhering to the principles of A LEAH. CT DOSE: 1383.92 mGy.cm FINDINGS: Lung bases are unremarkable. There is probable fatty infiltration of the liver. No pneumato sis, free air or portal venous gas is present. The spleen, adrenal glands, kidneys and pancreas are u nremarkable. There is no hydronephrosis. Nephrograms are symmetric. There is no evidence for a bowel obstruction. The appendix is normal. The caliber and wall thickness of small and large bowel are norm al. Mild bladder wall thickening is likely due to underdistention. No lymphadenopathy is present. The re is no abscess. Grade I anterolisthesis of L5 on S1 due to bilateral L5 pars defects is noted. IMPRESSION: 1. Normal appendix. No bowel obstruction. No bowel wall thickening. 2. Mild bladder wall thickening. This is likely due to underdistention although could be correlated w ith urinalysis. 3. Probable fatty infiltration of the liver. ACT 112: Negative or not required by law. Electronically signed by: Jin Shearer M.D. 03/06/2020 7:23 PM
[2020-03-06] MEDS ORDERED: POTASSIUM CHLORIDE / WTR 10 MEQ/100 ML PLCT IV ONE (19:51)
[2020-03-06] MEDS ORDERED: POTASSIUM CHLORIDE 20 MEQ TABCR PO ONE (20:20)
--- NOTE | 2020-03-06 20:34 | History & Physical Report ---
Date of Service March 06, 2020 Assessment & Plan (1) Hyponatremia: Hypovolemic hyponatremia secondary to acute viral gastritis Hypokalemia, hypomagnesemia, hypophosphatemia secondary to GI illness Situational hypertension DM 2 on oral medications, well-controlled as of recent outpatient hemoglobin A1c of 5.6 every 2019 hypothyroidism, euthyroid as of outpatient TSH from last year hyperlipidemia on statin Rx Medical telemetry Supportive management for viral illness for now Careful correction of sodium No IVF until repeat sodium obtained. Hyponatremia work-up May benefit from Nephrology consult. Replace electrolytes Recheck TSH ISS BG goal 1 40-1 80, update hemoglobin A1c DVT prophylaxis per Lovenox subcu Full code Text document was generated using [employer] voice recognition software. It may contain grammatical or spelling errors. Kindly contact undersigned for clarification of any documentation item in question. History of Present Illness Chief Complaint: Abdominal pain, emesis Primary Care Provider: Dhruv Portillo MD History obtained from patient and records. Medical history significant for DM 2 on oral medications, hypothyroidism, hyperlipidemia. This morning, patient woke up with minimal epigastric discomfort followed by nausea and multiple episodes of emesis. Could not keep anything down. Not related to food intake. No diarrhea. No known sick contacts, recent out-of-town travel, unusual food intake. No prior episodes. Low-grade fever. No chest pain, no S OB, no cough symptoms.. Medical History as above Surgical History : None Family History : Prostate cancer, ovarian cancer, diabetes Personal/Social history : Non-smoker, no EtOH intake, insurance sales Allergies Allergy/AdvReac Type Severity Reaction Status Date / Time iodine Allergy Rash Verified 03/06/20 20:14 Home Medications Home Medications Medication Instructions Recorded Confirmed Type Potassium Tab 99 mg PO DAILY 03/06/20 03/06/20 History atorvastatin [Lipitor] 10 mg PO DAILY 03/06/20 03/06/20 History cholecalciferol (vitamin D3) 25 mcg PO DAILY 03/06/20 03/06/20 History [Vitamin D3] cinnamon bark [Cinnamon] 500 mg PO DAILY 03/06/20 03/06/20 History diclofenac sodium [Voltaren] 4 g TOPICAL QID PRN 03/06/20 03/06/20 History dulaglutide [Trulicity] 0.75 mg SUBCUT WK 03/06/20 03/06/20 History ferrous sulfate [Iron (ferrous 0 mg PO DAILY 03/06/20 03/06/20 History sulfate)] levothyroxine 25 mcg PO DAILY 03/06/20 03/06/20 History magnesium oxide 400 mg PO DAILY 03/06/20 03/06/20 History metformin 500 mg PO DAILY 03/06/20 03/06/20 History multivitamin 1 tab PO DAILY 03/06/20 03/06/20 History vitamin B complex 1 tab PO DAILY 03/06/20 03/06/20 History Past Med/Surg History Social History Preferred Language: Senegalese Communication Ability: Effective Dump Truck Operator Required: No Beliefs That Will Affect Care: None Current Living Situation: Family Other Information That Helps Us Care for You: No Feels Safe at Home: Yes Safety Concerns: Afraid for Self Smoking Status: Never smoker Hx Alcohol Use: No Hx Substance Use: No Review of Systems Review of Systems: As per HPI, all 10 systems reviewed, all other ROS negative Physical Exam Physical Exam: GENERAL: Comfortable, obese, pleasant, no respiratory distress SKIN: Normal color, warm HEENT: [place] palpebral conjunctivae, no ptosis, dry buccal mucosa NECK : Supple, short neck, no tenderness CHEST : CTA, no tenderness HEART : RRR, no obvious murmurs ABDOMEN: Some distention, minimal epigastric tenderness EXTREMITIES : No LE swelling/tenderness, no other conspicuous deformities noted NEUROLOGIC : Coherent, no facial asymmetry, no other gross focality Results & Data Results & Data ([facility]) Vital Signs (Past 12 Hours) Vital Signs Temp Pulse Pulse Resp BP BP Pulse Ox 03/06/20 20:24 95 H 18 172/98 H 95 03/06/20 20:09 92 H 18 154/101 H 98 03/06/20 19:25 88 24 140/87 98 03/06/20 18:31 87 22 97 03/06/20 18:30 81 16 131/93 96 03/06/20 18:15 87 22 98 03/06/20 18:01 87 20 142/110 H 100 03/06/20 18:00 90 22 99 03/06/20 17:54 102 H 23 149/97 H 100 03/06/20 17:45 100 H 22 98 03/06/20 17:34 95 H 23 99 03/06/20 17:32 95 H 24 106/87 99 03/06/20 17:30 94 H 26 H 99 03/06/20 17:26 38 C H 94 H 26 H 106/87 99 Laboratory Results Laboratory Results WBC 10.23 K/uL (4.8-10.8) 03/06/20 18:01 RBC 4.52 M/uL (4.7-6.1) L 03/06/20 18:01 Hgb 14.2 g/dL (14.0-18.0) 03/06/20 18:01 Hct 38.7 % (42-52) L 03/06/20 18:01 MCV 85.6 fL (80-100) 03/06/20 18: MCH 31.4 pg (25-34) 03/06/20 18: MCHC 36.7 g/dL (32-36) H 03/06/20 18:01 RDW Std Deviation 36.4 fL (36.4-46.3) 03/06/20 18: RDW Coeff of Jordy 11.7 % (11.5-14.5) 03/06/20 18: Plt Count 299 K/uL (130-400) 03/06/20 18: MPV 9.5 fL (7.4-10.4) 03/06/20 18: Immature Gran % (Auto) 0.3 % 03/06/20 18:01 Neut % (Auto) 77.3 % 03/06/20 18:01 Lymph % (Auto) 15.5 % 03/06/20 18:01 [place] % (Auto) 6.2 % 03/06/20 18:01 Eos % (Auto) 0.5 % 03/06/20 18:01 Baso % (Auto) 0.2 % 03/06/20 18:01 Neut # (Auto) 7.91 K/uL (1.4-6.5) H 03/06/20 18:01 Lymph # (Auto) 1.59 K/uL (1.2-3.4) 03/06/20 18:01 [place]chran # (Auto) 0.63 K/uL (0.11-0.59) H 03/06/20 18:01 Eos # (Auto) 0.05 K/uL (0-0.5) 03/06/20 18:01 Baso # (Auto) 0.02 K/uL (0-0.2) 03/06/20 18:01 Immature Gran # (Auto) 0.03 K/uL (0.00-0.02) H 03/06/20 18:01 PT 10.9 Seconds (9.0-12.0) 03/06/20 18: INR 1.0 (0.9-1.1) 03/06/20 18: APTT 28.5 Seconds (21.0-31.0) 03/06/20 18: PTT Ratio 1.0 03/06/20 18: Sodium 120 mmol/L (136-145) L 03/06/20 18: Potassium 3.4 mmol/L (3.5-5.1) L 03/06/20 18: Chloride 91 mmol/L (98-107) L 03/06/20 18: Carbon Dioxide 17 mmol/L (21-32) L 03/06/20 18: Anion Gap 12.0 (3-11) H 03/06/20 18:01 BUN 10 mg/dl (7-18) 03/06/20 18: Creatinine 0.82 mg/dl (0.6-1.4) 03/06/20 18: Est Cr Clr Drug Dosing 123.9 ml/min 03/06/20 18:01 Est GFR ( Amer) 130.0 03/06/20 18:01 Est GFR (Non-Af Amer) 112.2 03/06/20 18:01 BUN/Creatinine Ratio 12.2 (10-20) 03/06/20 18:01 Glucose 166 mg/dl (70-99) H 03/06/20 18:01 POC Glucose 194 mg/dl (70-99) H 03/06/20 17:51 Osmolality 252 mOsm/kg (280-300) L 03/06/20 18:06 Calcium 8.4 mg/dl (8.5-10.1) L 03/06/20 18:01 Phosphorus 1.3 mg/dl (2.5-4.9) L* 03/06/20 18: Magnesium 1.5 mg/dl (1.8-2.4) L 03/06/20 18:01 Total Bilirubin 1.2 mg/dl (0.2-1) H 03/06/20 18:01 AST 23 U/L (15-37) 03/06/20 18: ALT 30 U/L (12-78) 03/06/20 18:01 Alkaline Phosphatase 57 U/L (45-117) 03/06/20 18: Troponin I < 0.015 ng/ml (0-0.045) 03/06/20 18: Total Protein 7.1 gm/dl (6.4-8.2) 03/06/20 18: Albumin 4.2 gm/dl (3.4-5.0) 03/06/20 18: Globulin 2.9 gm/dl (2.5-4.0) 03/06/20 18: Albumin/Globulin Ratio 1.4 (0.9-2) 03/06/20 18: Lipase 84 U/L (73-393) 03/06/20 18: Ethyl Alcohol mg/dL < 3.0 mg/dl (0-3) 03/06/20 18:[address] abdomen pelvis: 1. Normal appendix. No bowel obstruction. No bowel wall thickening. 2. Mild bladder wall thickening. This is likely due to underdistention although could be correlated with urinalysis. 3. Probable fatty infiltration of the liver. Chest x-ray : No acute cardiopulmonary findings. EKG as per my interpretation :Rate 95, NSR, normal axis, no ischemia
[2020-03-06] MEDS ORDERED: OXYCODONE HCL IR 5 MG TAB (IMMEDIATE RELEASE) PO PRN (21:51)
[2020-03-06] MEDS ORDERED: CARBOHYDRATES FOR HYPOGLYCEMIA PO PRN (21:51)
[2020-03-06] MEDS ORDERED: GLUCAGON FOR INJ 1 MG VIAL SQ PRN (21:51)
[2020-03-06] MEDS ORDERED: PROMETHAZINE HCL 12.5 MG in SODIUM CHLORIDE 0.9% 50 ML IV PRN (21:51)
[2020-03-06] MEDS ORDERED: MoRPHine SULFATE 4 MG/ML 1 ML CARP\\VIAL IV PRN (21:51)
[2020-03-06] MEDS ORDERED: GLUCOSE 40% GEL 15 GM TUBE PO PRN (21:51)
[2020-03-06] MEDS ORDERED: GLUCOSE 10 TABS/TUBE PO PRN (21:51)
[2020-03-06] MEDS ORDERED: DEXTROSE 50% 50 ML SYRINGE IV PRN (21:51)
[2020-03-06] MEDS ORDERED: POTASSIUM PHOS 3 MMOL/1 ML INFUSION IV ONE (22:08)
[2020-03-06] MEDS ORDERED: POTASSIUM PHOSPHATE 30 MMOL in SODIUM CHLORIDE 0.9% 500 ML IV ONE (22:30)
[2020-03-06] MEDS: INSULIN ASPART 100 UNITS/ML 3 ML PEN SC SCH (22:31)
[2020-03-07 00:28] LABS: Base Excess VBG -3.1 mEq/L; HCO3 VBG 22 mmol/L; PCO2 VBG 41 mmHg (38-50); PO2 VBG 41 mmHg; pH VBG 7.35 (7.36-7.41)
[2020-03-07 01:09] LABS: Basophils # (auto) 0.01 K/uL (0-0.2); Basophils % (auto) 0.1 %; Eosinophils # (auto) 0.02 K/uL (0-0.5); Eosinophils % (auto) 0.2 %; Hematocrit (blood only) 38.7 % (42-52); Hemoglobin 14.1 g/dL (14.0-18.0); Immature Granulocytes # (auto) 0.02 K/uL (0.00-0.02); Immature Granulocytes % (auto) 0.2 %; Lymphocytes # (auto) 1.37 K/uL (1.2-3.4); Lymphocytes % (auto) 14.5 %; Mean Corpuscular Hemoglobin 31.6 pg (25-34); Mean Corpuscular Hgb Conc 36.4 g/dL (32-36); Mean Corpuscular Volume 86.8 fL (80-100); Mean Platelet Volume 9.1 fL (7.4-10.4); Monocytes # (auto) 0.65 K/uL (0.11-0.59); Monocytes % (auto) 6.9 %; Neutrophils % (auto) 78.1 %; Platelet Count 253 K/uL (130-400); RDW Coefficient of Variation 11.8 % (11.5-14.5); RDW Standard Deviation 37.4 fL (36.4-46.3); Red Blood Count 4.46 M/uL (4.7-6.1); White Blood Count 9.47 K/uL (4.8-10.8)
[2020-03-07 01:30] LABS: BUN Creatinine Ratio 10.7 (10-20); Calcium 8.3 mg/dl (8.5-10.1); Creatinine Clr Calc Pharmacy 156.9 ml/min; Est GFR (African American) 133.4; Est GFR (Non-African American) 115.1; Magnesium 2.6 mg/dl (1.8-2.4); Potassium 5.2 mmol/L (3.5-5.1)
[2020-03-07] MEDS ORDERED: SODIUM CHLORIDE 0.45 % 1,000 ML IV ONE (02:01)
[2020-03-07] MEDS ORDERED: INSULIN HUMAN REGULAR PER UNIT 10 UNITS in SYRINGE 9.9 ML IV ONE (02:45)
[2020-03-07] MEDS ORDERED: DEXTROSE 50% 50 ML SYRINGE IV ONE (02:45)
[2020-03-07] MEDS ORDERED: CALCIUM GLUCONATE 10% 1,000 MG in SODIUM CHLORIDE 0.9% 50 ML IV STA (04:33)
[2020-03-07] MEDS: LEVOTHYROXINE SODIUM 25 MCG TABLET PO SCH (04:54)
[2020-03-07 06:49] LABS: BUN Creatinine Ratio 9.4 (10-20); Calcium 8.9 mg/dl (8.5-10.1); Creatinine Clr Calc Pharmacy 139.1 ml/min; Est GFR (African American) 127.5; Phosphorus 3.2 mg/dl (2.5-4.9); Potassium 4.4 mmol/L (3.5-5.1)
[2020-03-07] MEDS ORDERED: DEXTROSE 5% 1,000 ML IV SCH (07:00)
[2020-03-07] MEDS: MULTIVITAMIN TAB PO SCH (07:19)
[2020-03-07] MEDS: VITAMIN B COMPLEX TAB PO SCH (07:20)
[2020-03-07] MEDS: ENOXAPARIN INJ 40 MG/0.4 ML SYR SQ SCH (07:20)
[2020-03-07] MEDS: ATORVASTATIN 10 MG TAB PO SCH (07:20)
[2020-03-07] MEDS: FERROUS SULFATE 325 MG TAB PO SCH (07:20)
--- NOTE | 2020-03-07 07:21 | Hospitalist Progress Note ---
Date of Service March 07, 2020 Assessment & Plan (1) Hyponatremia: Hypovolemic hyponatremia secondary to acute viral gastritis Sodium 120 at 6 PM on March 06, sodium increased to 135 this morning. Hyponatremia work-up Careful correction of sodium Nephrology consulted -sodium level overcorrected, target sodium should be around 126. Give DDAVP 2 MCG once, give D5 water at 250 mL's per hour. Repeat BMP today Hypokalemia, hypomagnesemia, hypophosphatemia secondary to GI illness Replace electrolytes Supportive management for viral illness for now Medical telemetry Situational hypertension, cont. to monitor DM 2 on oral medications, well-controlled as of recent outpatient hemoglobin A1c of 5.6 every 2020 ISS BG goal 140-180, update hemoglobin A1c Hypothyroidism, euthyroid as of outpatient TSH from last year Recheck TSH Hyperlipidemia on statin Rx DVT prophylaxis per Lovenox subcu Full code Admission and Anticipated Discharge Date Admission Date: March 06, 2020 Subjective Patient is sitting up in a chair, in no acute distress. He says that he does not feel nauseous anymore, and denies any vomiting this morning. He also denies any fevers, chills, chest pain or shortness of breath. No abdominal pain. Admitted for hyponatremia, nausea vomiting, overcorrected too fast with sodium. Nephrology following. Review of Systems Review of Systems: All systems reviewed & are unremarkable except as noted in HPI & below Constitutional: no fever and no chills Respiratory: no cough and no dyspnea Cardiovascular: no chest pain and no palpitations Gastrointestinal: no abdominal pain, no nausea and no vomiting Physical Exam Physical Exam: GENERAL: Young obese, pleasant, male, sitting up in the chair, in no acute distress HEENT: Normocephalic, atraumatic, EOMI, PERRL, [place] palpebral conjunctivae, no ptosis NECK : Supple, short neck, no tenderness CHEST : CTAB, no wheezing, rhonchi or crackles HEART : RRR, no obvious murmurs ABDOMEN: Positive bowel sounds, soft, obese, nontender to palpation, some distention EXTREMITIES : No LE swelling/tenderness, moves extremities spontaneously SKIN: Normal color, warm, dry NEURO/ PSYCH : Alert and oriented x3, answers questions appropriately, no facial asymmetry, speech fluent, moves extremities spontaneously and without difficulty Results & Data Results & Data ([facility]) Vital Signs (Past 12 Hours) Vital Signs Temp Pulse Pulse Resp BP BP Pulse Ox 03/07/20 07:07 36.9 C 88 19 125/80 94 03/07/20 03:11 36.7 C 91 H 20 129/77 98 03/07/20 00:28 98 H 03/06/20 23:40 36.6 C 83 20 129/80 99 03/06/20 21:52 36.7 C 91 H 18 143/80 H 98 03/06/20 21:03 36.7 C 87 18 143/91 H 97 03/06/20 20:24 95 H 18 172/98 H 95 03/06/20 20:09 92 H 18 154/101 H 98 03/06/20 19:25 88 24 140/87 98 Laboratory Results 03/07/20 03/07/20 03/07/20 Range/Units 05:51 05:51 01:00 WBC (4.8-10.8) K/uL RBC (4.7-6.1) M/uL Hgb (14.0-18.0) g/dL Hct (42-52) % MCV (80-100) fL MCH (25-34) pg MCHC (32-36) g/dL RDW Std Deviation (36.4-46.3) fL RDW Coeff of Jordy (11.5-14.5) % Plt Count (130-400) K/uL MPV (7.4-10.4) fL Immature Gran % (Auto) % Neut % (Auto) % Lymph % (Auto) % [place]er % (Auto) % Eos % (Auto) % Baso % (Auto) % Neut # (Auto) (1.4-6.5) K/uL Lymph # (Auto) (1.2-3.4) K/uL [place]er # (Auto) (0.11-0.59) K/uL Eos # (Auto) (0-0.5) K/uL Baso # (Auto) (0-0.2) K/uL Immature Gran # (Auto) (0.00-0.02) K/uL PT (9.0-12.0) Seconds INR (0.9-1.1) APTT (21.0-31.0) Seconds PTT Ratio VBG pH (7.36-7.41) VBG pCO2 (38-50) mmHg VBG pO2 mmHg VBG HCO3 mmol/L VBG O2 Saturation % VBG Base Excess mEq/L Sodium 135 L 130 L D (136-145) mmol/L Potassium 4.4 D 5.2 H D (3.5-5.1) mmol/L Chloride 107 104 (98-107) mmol/L Carbon Dioxide 25 23 (21-32) mmol/L Anion Gap 3.0 3.0 (3-11) BUN 8 8 (7-18) mg/dl Creatinine 0.86 0.77 (0.6-1.4) mg/dl Est Cr Clr Drug Dosing 139.1 156.9 ml/min Est GFR ( Amer) 127.5 133.4 Est GFR (Non-Af Amer) 110.0 115.1 BUN/Creatinine Ratio 9.4 L 10.7 (10-20) Glucose 92 111 H (70-99) mg/dl POC Glucose (70-99) mg/dl Estimat Average Glucose Hemoglobin A1c Osmolality (280-300) mOsm/kg Lactate (0.4-2.0) mmol/L Calcium 8.9 8.3 L (8.5-10.1) mg/dl Phosphorus 3.2 D (2.5-4.9) mg/dl Magnesium 2.6 H (1.8-2.4) mg/dl Total Bilirubin (0.2-1) mg/dl AST (15-37) U/L ALT (12-78) U/L Alkaline Phosphatase (45-117) U/L Troponin I (0-0.045) ng/ml Total Protein (6.4-8.2) gm/dl Albumin 4.0 (3.4-5.0) gm/dl Globulin (2.5-4.0) gm/dl Albumin/Globulin Ratio (0.9-2) Lipase (73-393) U/L TSH Pending Urine Osmolality (500-800) mOsm/kg Ur Random Sodium mmol/L Ethyl Alcohol mg/dL (0-3) mg/dl SARS-CoV-2 RNA (RT-PCR) 03/07/20 03/07/20 03/07/20 Range/Units 01:00 00:16 00:16 WBC 9.47 (4.8-10.8) K/uL RBC 4.46 L (4.7-6.1) M/uL Hgb 14.1 (14.0-18.0) g/dL Hct 38.7 L (42-52) % MCV 86.8 (80-100) fL MCH 31.6 (25-34) pg MCHC 36.4 H (32-36) g/dL RDW Std Deviation 37.4 (36.4-46.3) fL RDW Coeff of Jordy 11.8 (11.5-14.5) % Plt Count 253 (130-400) K/uL MPV 9.1 (7.4-10.4) fL Immature Gran % (Auto) 0.2 % Neut % (Auto) 78.1 % Lymph % (Auto) 14.5 % Towner % (Auto) 6.9 % Eos % (Auto) 0.2 % Baso % (Auto) 0.1 % Neut # (Auto) 7.40 H (1.4-6.5) K/uL Lymph # (Auto) 1.37 (1.2-3.4) K/uL [place] # (Auto) 0.65 H (0.11-0.59) K/uL Eos # (Auto) 0.02 (0-0.5) K/uL Baso # (Auto) 0.01 (0-0.2) K/uL Immature Gran # (Auto) 0.02 (0.00-0.02) K/uL PT (9.0-12.0) Seconds INR (0.9-1.1) APTT (21.0-31.0) Seconds PTT Ratio VBG pH 7.35 L (7.36-7.41) VBG pCO2 41 (38-50) mmHg VBG pO2 41 mmHg VBG HCO3 22 mmol/L VBG O2 Saturation 73.0 % VBG Base Excess -3.1 mEq/L Sodium (136-145) mmol/L Potassium (3.5-5.1) mmol/L Chloride (98-107) mmol/L Carbon Dioxide (21-32) mmol/L Anion Gap (3-11) BUN (7-18) mg/dl Creatinine (0.6-1.4) mg/dl Est Cr Clr Drug Dosing ml/min Est GFR ( Amer) Est GFR (Non-Af Amer) BUN/Creatinine Ratio (10-20) Glucose (70-99) mg/dl POC Glucose (70-99) mg/dl Estimat Average Glucose Hemoglobin A1c Osmolality (280-300) mOsm/kg Lactate 0.9 (0.4-2.0) mmol/L Calcium (8.5-10.1) mg/dl Phosphorus (2.5-4.9) mg/dl Magnesium (1.8-2.4) mg/dl Total Bilirubin (0.2-1) mg/dl AST (15-37) U/L ALT (12-78) U/L Alkaline Phosphatase (45-117) U/L Troponin I (0-0.045) ng/ml Total Protein (6.4-8.2) gm/dl Albumin (3.4-5.0) gm/dl Globulin (2.5-4.0) gm/dl Albumin/Globulin Ratio (0.9-2) Lipase (73-393) U/L TSH Urine Osmolality (500-800) mOsm/kg Ur Random Sodium mmol/L Ethyl Alcohol mg/dL (0-3) mg/dl SARS-CoV-2 RNA (RT-PCR) 03/06/20 03/06/20 03/06/20 Range/Units 22:29 22:15 22:15 WBC (4.8-10.8) K/uL RBC (4.7-6.1) M/uL Hgb (14.0-18.0) g/dL Hct (42-52) % MCV (80-100) fL MCH (25-34) pg MCHC (32-36) g/dL RDW Std Deviation (36.4-46.3) fL RDW Coeff of Jordy (11.5-14.5) % Plt Count (130-400) K/uL MPV (7.4-10.4) fL Immature Gran % (Auto) % Neut % (Auto) % Lymph % (Auto) % [place] % (Auto) % Eos % (Auto) % Baso % (Auto) % Neut # (Auto) (1.4-6.5) K/uL Lymph # (Auto) (1.2-3.4) K/uL [place] # (Auto) (0.11-0.59) K/uL Eos # (Auto) (0-0.5) K/uL Baso # (Auto) (0-0.2) K/uL Immature Gran # (Auto) (0.00-0.02) K/uL PT (9.0-12.0) Seconds INR (0.9-1.1) APTT (21.0-31.0) Seconds PTT Ratio VBG pH (7.36-7.41) VBG pCO2 (38-50) mmHg VBG pO2 mmHg VBG HCO3 mmol/L VBG O2 Saturation % VBG Base Excess mEq/L Sodium (136-145) mmol/L Potassium (3.5-5.1) mmol/L Chloride (98-107) mmol/L Carbon Dioxide (21-32) mmol/L Anion Gap (3-11) BUN (7-18) mg/dl Creatinine (0.6-1.4) mg/dl Est Cr Clr Drug Dosing ml/min Est GFR ( Amer) Est GFR (Non-Af Amer) BUN/Creatinine Ratio (10-20) Glucose (70-99) mg/dl POC Glucose 125 H (70-99) mg/dl Estimat Average Glucose Hemoglobin A1c Osmolality (280-300) mOsm/kg Lactate (0.4-2.0) mmol/L Calcium (8.5-10.1) mg/dl Phosphorus (2.5-4.9) mg/dl Magnesium (1.8-2.4) mg/dl Total Bilirubin (0.2-1) mg/dl AST (15-37) U/L ALT (12-78) U/L Alkaline Phosphatase (45-117) U/L Troponin I (0-0.045) ng/ml Total Protein (6.4-8.2) gm/dl Albumin (3.4-5.0) gm/dl Globulin (2.5-4.0) gm/dl Albumin/Globulin Ratio (0.9-2) Lipase (73-393) U/L TSH Urine Osmolality 69 L (500-800) mOsm/kg Ur Random Sodium 15 mmol/L Ethyl Alcohol mg/dL (0-3) mg/dl SARS-CoV-2 RNA (RT-PCR) 03/06/20 03/06/20 03/06/20 Range/Units 18:24 18:06 18:06 WBC (4.8-10.8) K/uL RBC (4.7-6.1) M/uL Hgb (14.0-18.0) g/dL Hct (42-52) % MCV (80-100) fL MCH (25-34) pg MCHC (32-36) g/dL RDW Std Deviation (36.4-46.3) fL RDW Coeff of Jordy (11.5-14.5) % Plt Count (130-400) K/uL MPV (7.4-10.4) fL Immature Gran % (Auto) % Neut % (Auto) % Lymph % (Auto) % [place] % (Auto) % Eos % (Auto) % Baso % (Auto) % Neut # (Auto) (1.4-6.5) K/uL Lymph # (Auto) (1.2-3.4) K/uL [place] # (Auto) (0.11-0.59) K/uL Eos # (Auto) (0-0.5) K/uL Baso # (Auto) (0-0.2) K/uL Immature Gran # (Auto) (0.00-0.02) K/uL PT (9.0-12.0) Seconds INR (0.9-1.1) APTT (21.0-31.0) Seconds PTT Ratio VBG pH (7.36-7.41) VBG pCO2 (38-50) mmHg VBG pO2 mmHg VBG HCO3 mmol/L VBG O2 Saturation % VBG Base Excess mEq/L Sodium (136-145) mmol/L Potassium (3.5-5.1) mmol/L Chloride (98-107) mmol/L Carbon Dioxide (21-32) mmol/L Anion Gap (3-11) BUN (7-18) mg/dl Creatinine (0.6-1.4) mg/dl Est Cr Clr Drug Dosing ml/min Est GFR ( Amer) Est GFR (Non-Af Amer) BUN/Creatinine Ratio (10-20) Glucose (70-99) mg/dl POC Glucose (70-99) mg/dl Estimat Average Glucose Pending Hemoglobin A1c Pending Osmolality 252 L (280-300) mOsm/kg Lactate (0.4-2.0) mmol/L Calcium (8.5-10.1) mg/dl Phosphorus (2.5-4.9) mg/dl Magnesium (1.8-2.4) mg/dl Total Bilirubin (0.2-1) mg/dl AST (15-37) U/L ALT (12-78) U/L Alkaline Phosphatase (45-117) U/L Troponin I (0-0.045) ng/ml Total Protein (6.4-8.2) gm/dl Albumin (3.4-5.0) gm/dl Globulin (2.5-4.0) gm/dl Albumin/Globulin Ratio (0.9-2) Lipase (73-393) U/L TSH Urine Osmolality (500-800) mOsm/kg Ur Random Sodium mmol/L Ethyl Alcohol mg/dL (0-3) mg/dl SARS-CoV-2 RNA (RT-PCR) Cancelled 03/06/20 03/06/20 03/06/20 Range/Units 18:01 18:01 18:01 WBC (4.8-10.8) K/uL RBC (4.7-6.1) M/uL Hgb (14.0-18.0) g/dL Hct (42-52) % MCV (80-100) fL MCH (25-34) pg MCHC (32-36) g/dL RDW Std Deviation (36.4-46.3) fL RDW Coeff of Jordy (11.5-14.5) % Plt Count (130-400) K/uL MPV (7.4-10.4) fL Immature Gran % (Auto) % Neut % (Auto) % Lymph % (Auto) % [place] % (Auto) % Eos % (Auto) % Baso % (Auto) % Neut # (Auto) (1.4-6.5) K/uL Lymph # (Auto) (1.2-3.4) K/uL [place] # (Auto) (0.11-0.59) K/uL Eos # (Auto) (0-0.5) K/uL Baso # (Auto) (0-0.2) K/uL Immature Gran # (Auto) (0.00-0.02) K/uL PT 10.9 (9.0-12.0) Seconds INR 1.0 (0.9-1.1) APTT 28.5 (21.0-31.0) Seconds PTT Ratio 1.0 VBG pH (7.36-7.41) VBG pCO2 (38-50) mmHg VBG pO2 mmHg VBG HCO3 mmol/L VBG O2 Saturation % VBG Base Excess mEq/L Sodium 120 L (136-145) mmol/L Potassium 3.4 L (3.5-5.1) mmol/L Chloride 91 L (98-107) mmol/L Carbon Dioxide 17 L (21-32) mmol/L Anion Gap 12.0 H (3-11) BUN 10 (7-18) mg/dl Creatinine 0.82 (0.6-1.4) mg/dl Est Cr Clr Drug Dosing 123.9 ml/min Est GFR ( Amer) 130.0 Est GFR (Non-Af Amer) 112.2 BUN/Creatinine Ratio 12.2 (10-20) Glucose 166 H (70-99) mg/dl POC Glucose (70-99) mg/dl Estimat Average Glucose Hemoglobin A1c Osmolality (280-300) mOsm/kg Lactate (0.4-2.0) mmol/L Calcium 8.4 L (8.5-10.1) mg/dl Phosphorus 1.3 L* (2.5-4.9) mg/dl Magnesium 1.5 L (1.8-2.4) mg/dl Total Bilirubin 1.2 H (0.2-1) mg/dl AST 23 (15-37) U/L ALT 30 (12-78) U/L Alkaline Phosphatase 57 (45-117) U/L Troponin I < 0.015 (0-0.045) ng/ml Total Protein 7.1 (6.4-8.2) gm/dl Albumin 4.2 (3.4-5.0) gm/dl Globulin 2.9 (2.5-4.0) gm/dl Albumin/Globulin Ratio 1.4 (0.9-2) Lipase 84 (73-393) U/L TSH Urine Osmolality (500-800) mOsm/kg Ur Random Sodium mmol/L Ethyl Alcohol mg/dL < 3.0 (0-3) mg/dl SARS-CoV-2 RNA (RT-PCR) 03/06/20 03/06/20 Range/Units 18:01 17:51 WBC 10.23 (4.8-10.8) K/uL RBC 4.52 L (4.7-6.1) M/uL Hgb 14.2 (14.0-18.0) g/dL Hct 38.7 L (42-52) % MCV 85.6 (80-100) fL MCH 31.4 (25-34) pg MCHC 36.7 H (32-36) g/dL RDW Std Deviation 36.4 (36.4-46.3) fL RDW Coeff of Jordy 11.7 (11.5-14.5) % Plt Count 299 (130-400) K/uL MPV 9.5 (7.4-10.4) fL Immature Gran % (Auto) 0.3 % Neut % (Auto) 77.3 % Lymph % (Auto) 15.5 % Towner % (Auto) 6.2 % Eos % (Auto) 0.5 % Baso % (Auto) 0.2 % Neut # (Auto) 7.91 H (1.4-6.5) K/uL Lymph # (Auto) 1.59 (1.2-3.4) K/uL [place]er # (Auto) 0.63 H (0.11-0.59) K/uL Eos # (Auto) 0.05 (0-0.5) K/uL Baso # (Auto) 0.02 (0-0.2) K/uL Immature Gran # (Auto) 0.03 H (0.00-0.02) K/uL PT (9.0-12.0) Seconds INR (0.9-1.1) APTT (21.0-31.0) Seconds PTT Ratio VBG pH (7.36-7.41) VBG pCO2 (38-50) mmHg VBG pO2 mmHg VBG HCO3 mmol/L VBG O2 Saturation % VBG Base Excess mEq/L Sodium (136-145) mmol/L Potassium (3.5-5.1) mmol/L Chloride (98-107) mmol/L Carbon Dioxide (21-32) mmol/L Anion Gap (3-11) BUN (7-18) mg/dl Creatinine (0.6-1.4) mg/dl Est Cr Clr Drug Dosing ml/min Est GFR ( Amer) Est GFR (Non-Af Amer) BUN/Creatinine Ratio (10-20) Glucose (70-99) mg/dl POC Glucose 194 H (70-99) mg/dl Estimat Average Glucose Hemoglobin A1c Osmolality (280-300) mOsm/kg Lactate (0.4-2.0) mmol/L Calcium (8.5-10.1) mg/dl Phosphorus (2.5-4.9) mg/dl Magnesium (1.8-2.4) mg/dl Total Bilirubin (0.2-1) mg/dl AST (15-37) U/L ALT (12-78) U/L Alkaline Phosphatase (45-117) U/L Troponin I (0-0.045) ng/ml Total Protein (6.4-8.2) gm/dl Albumin (3.4-5.0) gm/dl Globulin (2.5-4.0) gm/dl Albumin/Globulin Ratio (0.9-2) Lipase (73-393) U/L TSH Urine Osmolality (500-800) mOsm/kg Ur Random Sodium mmol/L Ethyl Alcohol mg/dL (0-3) mg/dl SARS-CoV-2 RNA (RT-PCR)
[2020-03-07] MEDS: INSULIN ASPART 100 UNITS/ML 3 ML PEN SC SCH ×4 (07:24→21:09)
[2020-03-07] MEDS ORDERED: DESMOPRESSIN ACETATE 2 MCG in SODIUM CHLORIDE 0.9% 50 ML IV ONE (10:30)
--- NOTE | 2020-03-07 10:33 | Nephrology Consultation ---
Date of Consultation March 07, 2020 Assessment & Plan (1) Hyponatremia: Patient with hyponatremia likely due to hypovolemia in setting of vomiting and poor p.o. intake. Admission sodium was 120 at 6 PM on 03/06/2020. Sodium is up to 135 this morning. Rate of correction is about 6 in 24 hours. Target sodium today should be around 126. We will give DDAVP 2 mcg once. We will give D5 water at 250 mL/h. Will repeat a BMP at 2 PM. (2) Hypokalemia: Patient admitted with potassium of 3.4 which corrected with supplementation. Potassium is 4.4 today. No need for additional supplements (3) Hypophosphatemia: Patient admitted with a phosphorus of 1.3 which is improved with potassium supplementation. No need for additional supplements today. History of Present Illness Reason for Consultation: Hyponatremia Requesting Physician: Ladarius Guzman MD Attending Physician: Ladarius Guzman MD History of Present Illness This is a 39-year-old male with history of type 2 diabetes on oral medications, hypothyroidism, hyperlipidemia who was admitted on 03/06/2020 with weakness found to have sodium of 120 at 6 PM. He had a serum osmolality of 252, urine osmolality of 69 and urine sodium of 15. Patient reports vomiting for 1 day prior to admission. He then developed severe muscle cramps and felt dizzy. He was also found to have a potassium of 3.4 on admission and phosphorus of 1.3. He was not able to drink or eat the day prior to admission. He received IV fluids and electrolyte repletion. His sodium is up to 135 this morning. No shortness of breath or urinary symptoms. No leg swelling. No vomiting or abdominal pain this morning. Allergies Allergy/AdvReac Type Severity Reaction Status Date / Time iodine Allergy Rash Verified 03/06/20 20:14 Home Medications Home Medications Medication Instructions Recorded Confirmed Type Potassium Tab 99 mg PO DAILY 03/06/20 03/06/20 History atorvastatin [Lipitor] 10 mg PO DAILY 03/06/20 03/06/20 History cholecalciferol (vitamin D3) 25 mcg PO DAILY 03/06/20 03/06/20 History [Vitamin D3] cinnamon bark [Cinnamon] 500 mg PO DAILY 03/06/20 03/06/20 History diclofenac sodium [Voltaren] 4 g TOPICAL QID PRN 03/06/20 03/06/20 History dulaglutide [Trulicity] 0.75 mg SUBCUT WK 03/06/20 03/06/20 History ferrous sulfate [Iron (ferrous 0 mg PO DAILY 03/06/20 03/06/20 History sulfate)] levothyroxine 25 mcg PO DAILY 03/06/20 03/06/20 History magnesium oxide 400 mg PO DAILY 03/06/20 03/06/20 History metformin 500 mg PO DAILY 03/06/20 03/06/20 History multivitamin 1 tab PO DAILY 03/06/20 03/06/20 History vitamin B complex 1 tab PO DAILY 03/06/20 03/06/20 History Patient History Social History Preferred Language: Tuvaluan Communication Ability: 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 Gastrointestinal: Abdomen is soft, non distended, non tender, bowel sounds are present CVS: Regular rate and rhythm. No murmurs, rubs or gallops Musculoskeletal: No joint or muscle tenderness Extremities: Non tender, no edema, peripheral pulses are present Neuro: Oriented, no tremors, no focal neurological deficits Skin: No rashes Results & Data Vital Signs (Past 12 Hours) Vital Signs Temp Pulse Pulse Resp BP Pulse Ox 03/07/20 07:07 36.9 C 88 19 125/80 94 03/07/20 03:11 36.7 C 91 H 20 129/77 98 03/07/20 00:28 98 H 03/06/20 23:40 36.6 C 83 20 129/80 99 Laboratory Results 03/07/20 05:51 03/06/20 03/06/20 03/07/20 18:01 18:01 01:00 WBC 10.23 9.47 RBC 4.52 L 4.46 L MCV 85.6 86.8 MCH 31.4 31.6 MCHC 36.7 H 36.4 H RDW Std Deviation 36.4 37.4 RDW Coeff of Jordy 11.7 11.8 Plt Count 299 253 MPV 9.5 9.1 Phosphorus 1.3 L* Albumin 4.2 03/07/20 03/07/20 01:00 05:51 WBC RBC MCV MCH MCHC RDW Std Deviation RDW Coeff of Jordy Plt Count MPV Phosphorus 3.2 D Albumin 4.0
[2020-03-07] MEDS: DEXTROSE 5% 1,000 ML IV SCH ×4 (10:51→23:06)
--- NOTE | 2020-03-07 12:15 | Electrocardiogram Report ---
Test Reason : Blood Pressure : / mmHG Vent. Rate : 093 BPM Atrial Rate : 093 BPM P-R Int : 198 ms QRS Dur : 096 ms QT Int : 370 ms P-R-T Axes : 029 -21 013 degrees QTc Int : 460 ms Normal sinus rhythm Normal ECG When compared with ECG of 26-AUG-2012 22:35, No significant change was found Confirmed by Luis Benavides ([id number]) on 03/07/2020 12:15:41 PM Referred By: REFERRED SELF Confirmed By:Luis Benavides
[2020-03-07 14:25] LABS: BUN Creatinine Ratio 7.9 (10-20); Calcium 9.1 mg/dl (8.5-10.1); Creatinine Clr Calc Pharmacy 111.8 ml/min; Est GFR (African American) 101.5; Est GFR (Non-African American) 87.6; Potassium 4.5 mmol/L (3.5-5.1)
[2020-03-07] MEDS: ACETAMINOPHEN 325 MG TAB PO PRN (16:13)
[2020-03-08] MEDS: DEXTROSE 5% 1,000 ML IV SCH ×3 (02:53→09:27)
[2020-03-08] MEDS: LEVOTHYROXINE SODIUM 25 MCG TABLET PO SCH (05:35)
[2020-03-08 06:06] LABS: Estimated Average Glucose 114 mg/dl; Hemoglobin A1C 5.6 % (4.5-5.6)
[2020-03-08 06:34] LABS: Hematocrit (blood only) 34.9 % (42-52); Hemoglobin 12.7 g/dL (14.0-18.0); Mean Corpuscular Hemoglobin 31.9 pg (25-34); Mean Corpuscular Hgb Conc 36.4 g/dL (32-36); Mean Corpuscular Volume 87.7 fL (80-100); Mean Platelet Volume 9.5 fL (7.4-10.4); Platelet Count 249 K/uL (130-400); RDW Coefficient of Variation 11.8 % (11.5-14.5); RDW Standard Deviation 37.7 fL (36.4-46.3); Red Blood Count 3.98 M/uL (4.7-6.1); White Blood Count 8.96 K/uL (4.8-10.8)
[2020-03-08 07:05] LABS: BUN Creatinine Ratio 8.1 (10-20); Calcium 8.6 mg/dl (8.5-10.1); Creatinine Clr Calc Pharmacy 150.3 ml/min; Est GFR (African American) 131.3; Est GFR (Non-African American) 113.3; Magnesium 2.2 mg/dl (1.8-2.4); Phosphorus 3.6 mg/dl (2.5-4.9)
[2020-03-08 07:15] LABS: Potassium 3.6 mmol/L (3.5-5.1)
[2020-03-08] MEDS: ACETAMINOPHEN 325 MG TAB PO PRN (07:46)
[2020-03-08] MEDS: ENOXAPARIN INJ 40 MG/0.4 ML SYR SQ SCH (07:47)
[2020-03-08] MEDS: ATORVASTATIN 10 MG TAB PO SCH (07:48)
[2020-03-08] MEDS: VITAMIN B COMPLEX TAB PO SCH (07:48)
[2020-03-08] MEDS: MULTIVITAMIN TAB PO SCH (07:48)
[2020-03-08] MEDS: FERROUS SULFATE 325 MG TAB PO SCH (07:48)
[2020-03-08] MEDS: INSULIN ASPART 100 UNITS/ML 3 ML PEN SC SCH ×2 (08:14→12:02)
[2020-03-08] MEDS ORDERED: POTASSIUM CHLORIDE 20 MEQ TABCR PO STA (08:34)
--- NOTE | 2020-03-08 08:34 | Hospitalist Progress Note ---
Date of Service March 08, 2020 Assessment & Plan (1) Hyponatremia: Hypovolemic hyponatremia secondary to acute viral gastritis Sodium 120 at 6 PM on March 06, sodium increased to 135 this morning. Hyponatremia work-up Careful correction of sodium Nephrology consulted -sodium level overcorrected, target sodium should be around 126. Give DDAVP 2 MCG once, give D5 water at 250 mL's per hour. Repeat BMP. -Sodium decreased to 132 (03/07 PM), and this morning sodium is 130 (03/08/20) -Per nephrology, will switch to normal saline, and recheck BMP in the afternoon if stable, patient okay to DC home Hypokalemia, hypomagnesemia, hypophosphatemia secondary to GI illness Replace electrolytes Supportive management for viral illness for now Medical telemetry Situational hypertension, cont. to monitor DM 2 on oral medications, well-controlled as of recent outpatient hemoglobin A1c of 5.6 every 2019 ISS BG goal 140-180, update hemoglobin A1c Hypothyroidism, euthyroid as of outpatient TSH from last year Recheck TSH Hyperlipidemia on statin Rx DVT prophylaxis per Lovenox subcu Full code Admission and Anticipated Discharge Date Admission Date: March 06, 2020 Subjective No acute events overnight. Patient is sitting up in a chair, in no acute distress. He says that he does not feel nauseous anymore, and denies any vomiting since admission. He also denies any headache, dizziness, confusion, fevers, chills, chest pain or shortness of breath. No abdominal pain. Admitted for hyponatremia, nausea vomiting, overcorrected too fast with sodium. Nephrology following. Plan to switch normal saline, recheck BMP in the afternoon. Patient's at the bedside updated. Review of Systems Review of Systems: All systems reviewed & are unremarkable except as noted in HPI & below Constitutional: no fever and no chills Respiratory: no cough and no dyspnea Cardiovascular: no chest pain and no palpitations Gastrointestinal: + diarrhea/loose stools; no abdominal pain, no nausea and no vomiting Physical Exam Physical Exam: GENERAL: Young obese, pleasant, male, sitting up in the chair, in no acute distress HEENT: Normocephalic, atraumatic, EOMI, PERRL, [place] palpebral conjunctivae, no ptosis NECK : Supple, short neck, no tenderness CHEST : CTAB, no wheezing, rhonchi or crackles HEART : RRR, no obvious murmurs ABDOMEN: Positive bowel sounds, soft, obese, nontender to palpation, some distention EXTREMITIES : No LE swelling/tenderness, moves extremities spontaneously SKIN: Normal color, warm, dry NEURO/ PSYCH : Alert and oriented x3, answers questions appropriately, no facial asymmetry, speech fluent, moves extremities spontaneously and without difficulty Results & Data Results & Data ([facility]) Vital Signs (Past 12 Hours) Vital Signs Temp Pulse Pulse Resp BP BP Pulse Ox 03/08/20 08:15 69 03/08/20 07:55 36.7 C 73 18 132/82 100 03/08/20 03:18 36.8 C 75 16 144/83 H 100 03/08/20 01:39 71 03/07/20 23:31 36.5 C 81 20 134/87 99 Laboratory Results 03/08/20 03/08/20 03/08/20 Range/Units 07:42 05:53 05:53 WBC 8.96 (4.8-10.8) K/uL RBC 3.98 L (4.7-6.1) M/uL Hgb 12.7 L (14.0-18.0) g/dL Hct 34.9 L (42-52) % MCV 87.7 (80-100) fL MCH 31.9 (25-34) pg MCHC 36.4 H (32-36) g/dL RDW Std Deviation 37.7 (36.4-46.3) fL RDW Coeff of Jordy 11.8 (11.5-14.5) % Plt Count 249 (130-400) K/uL MPV 9.5 (7.4-10.4) fL Sodium 130 L (136-145) mmol/L Potassium 3.6 D (3.5-5.1) mmol/L Chloride 98 (98-107) mmol/L Carbon Dioxide 27 (21-32) mmol/L Anion Gap 5.0 (3-11) BUN 7 (7-18) mg/dl Creatinine 0.80 (0.6-1.4) mg/dl Est Cr Clr Drug Dosing 150.3 ml/min Est GFR ( Amer) 131.3 Est GFR (Non-Af Amer) 113.3 BUN/Creatinine Ratio 8.1 L (10-20) Glucose 126 H (70-99) mg/dl POC Glucose 127 H (70-99) mg/dl Estimat Average Glucose mg/dl Hemoglobin A1c (4.5-5.6) % Calcium 8.6 (8.5-10.1) mg/dl Phosphorus 3.6 (2.5-4.9) mg/dl Magnesium 2.2 (1.8-2.4) mg/dl COVID-19 PCR (Negative) 03/07/20 03/07/20 03/07/20 Range/Units 20:44 17:56 16:54 WBC (4.8-10.8) K/uL RBC (4.7-6.1) M/uL Hgb (14.0-18.0) g/dL Hct (42-52) % MCV (80-100) fL MCH (25-34) pg MCHC (32-36) g/dL RDW Std Deviation (36.4-46.3) fL RDW Coeff of Jordy (11.5-14.5) % Plt Count (130-400) K/uL MPV (7.4-10.4) fL Sodium 132 L (136-145) mmol/L Potassium (3.5-5.1) mmol/L Chloride (98-107) mmol/L Carbon Dioxide (21-32) mmol/L Anion Gap (3-11) BUN (7-18) mg/dl Creatinine (0.6-1.4) mg/dl Est Cr Clr Drug Dosing ml/min Est GFR ( Amer) Est GFR (Non-Af Amer) BUN/Creatinine Ratio (10-20) Glucose (70-99) mg/dl POC Glucose 132 H 127 H (70-99) mg/dl Estimat Average Glucose mg/dl Hemoglobin A1c (4.5-5.6) % Calcium (8.5-10.1) mg/dl Phosphorus (2.5-4.9) mg/dl Magnesium (1.8-2.4) mg/dl COVID-19 PCR (Negative) 03/07/20 03/07/20 03/07/20 Range/Units 13:45 11:55 11:34 WBC (4.8-10.8) K/uL RBC (4.7-6.1) M/uL Hgb (14.0-18.0) g/dL Hct (42-52) % MCV (80-100) fL MCH (25-34) pg MCHC (32-36) g/dL RDW Std Deviation (36.4-46.3) fL RDW Coeff of Jordy (11.5-14.5) % Plt Count (130-400) K/uL MPV (7.4-10.4) fL Sodium 137 138 (136-145) mmol/L Potassium 4.5 (3.5-5.1) mmol/L Chloride 105 (98-107) mmol/L Carbon Dioxide 24 (21-32) mmol/L Anion Gap 8.0 (3-11) BUN 9 (7-18) mg/dl Creatinine 1.07 (0.6-1.4) mg/dl Est Cr Clr Drug Dosing 111.8 ml/min Est GFR ( Amer) 101.5 Est GFR (Non-Af Amer) 87.6 BUN/Creatinine Ratio 7.9 L (10-20) Glucose 138 H (70-99) mg/dl POC Glucose 130 H (70-99) mg/dl Estimat Average Glucose mg/dl Hemoglobin A1c (4.5-5.6) % Calcium 9.1 (8.5-10.1) mg/dl Phosphorus (2.5-4.9) mg/dl Magnesium (1.8-2.4) mg/dl COVID-19 PCR (Negative) 03/07/20 03/06/20 Range/Units 07:45 18:06 WBC (4.8-10.8) K/uL RBC (4.7-6.1) M/uL Hgb (14.0-18.0) g/dL Hct (42-52) % MCV (80-100) fL MCH (25-34) pg MCHC (32-36) g/dL RDW Std Deviation (36.4-46.3) fL RDW Coeff of Jordy (11.5-14.5) % Plt Count (130-400) K/uL MPV (7.4-10.4) fL Sodium (136-145) mmol/L Potassium (3.5-5.1) mmol/L Chloride (98-107) mmol/L Carbon Dioxide (21-32) mmol/L Anion Gap (3-11) BUN (7-18) mg/dl Creatinine (0.6-1.4) mg/dl Est Cr Clr Drug Dosing ml/min Est GFR ( Amer) Est GFR (Non-Af Amer) BUN/Creatinine Ratio (10-20) Glucose (70-99) mg/dl POC Glucose (70-99) mg/dl Estimat Average Glucose 114 mg/dl Hemoglobin A1c 5.6 (4.5-5.6) % Calcium (8.5-10.1) mg/dl Phosphorus (2.5-4.9) mg/dl Magnesium (1.8-2.4) mg/dl COVID-19 PCR NEGATIVE (Negative) Medications Administered Current Inpatient Medications Acetaminophen (Tylenol) 325 mg PO Q6H PRN PRN Reason: Mild Pain Stop: 04/05/20 21:50 Last Admin: 03/08/20 07:46 Dose: 325 mg Documented by: Atorvastatin Calcium (Lipitor) 10 mg PO DAILY KARLY Stop: 04/06/20 08:59 Last Admin: 03/08/20 07:48 Dose: 10 mg Documented by: Dextrose (Dextrose 50%) 25 - 50 ml IV UD PRN; Protocol PRN Reason: Hypoglycemia Protocol Stop: 04/05/20 21:50 Enoxaparin Sodium (Lovenox) 40 mg SQ QAM KARLY Stop: 04/06/20 08:59 Last Admin: 03/08/20 07:47 Dose: 40 mg Documented by: Ferrous Sulfate (Feosol) 325 mg PO DAILY KARLY Stop: 04/06/20 08:59 Last Admin: 03/08/20 07:48 Dose: 325 mg Documented by: Glucagon (Glucagen) 1 mg SQ UD PRN; Protocol PRN Reason: Hypoglycemia Protocol Stop: 04/05/20 21:50 Glucose (Glucose 40%) 15 - 30 gm PO UD PRN; Protocol PRN Reason: Hypoglycemia Protocol Stop: 04/05/20 21:50 Glucose (Dex4 Glucose) 4 - 8 tabs PO UD PRN; Protocol PRN Reason: Hypoglycemia Protocol Stop: 04/05/20 21:50 Promethazine HCl 12.5 mg/ (Sodium Chloride) 50.5 mls @ 202 mls/hr IV Q6H PRN PRN Reason: Nausea And Vomiting Stop: 04/05/20 21:50 Last Infusion: 03/07/20 23:49 Dose: Infused Documented by: Dextrose (D5w) 1,000 mls @ 250 mls/hr IV .Q4H KARLY Stop: 04/06/20 10:29 Last Admin: 03/08/20 05:35 Dose: 250 mls/hr Documented by: Insulin Aspart (Novolog Flexpen) 0 units SC ACHS KARLY Stop: 04/05/20 21:50 Last Admin: 03/08/20 08:14 Dose: 1 units Documented by: Levothyroxine Sodium (Synthroid) 25 mcg PO DAILYBB KARLY Stop: 04/06/20 06:29 Last Admin: 03/08/20 05:35 Dose: 25 mcg Documented by: Miscellaneous (Carbohydrates For Hypoglycemia) 15 - 30 gm PO UD PRN PRN Reason: Hypoglycemia Protocol Stop: 04/05/20 21:50 Morphine Sulfate (Morphine Sulfate) 4 mg IV Q4H PRN PRN Reason: Pain Stop: 03/20/20 21:50 Multivitamins (Multivitamin Tab) 1 tab PO DAILY KARLY Stop: 04/06/20 08:59 Last Admin: 03/08/20 07:48 Dose: 1 tab Documented by: Oxycodone HCl (Roxicodone Immediate Rel) 5 mg PO Q4H PRN PRN Reason: Pain Stop: 03/20/20 21:50 Last Admin: 03/07/20 21:06 Dose: 5 mg Documented by: Vitamin B Complex (Vitamin B Complex) 1 tab PO DAILY [facility] Stop: 04/06/20 08:59 Last Admin: 03/08/20 07:48 Dose: 1 tab Documented by:
[2020-03-08] MEDS ORDERED: SODIUM CHLORIDE 0.9% 500 ML IV SCH (10:00)
--- NOTE | 2020-03-08 10:37 | Progress Notes ---
DATE: 03/08/2020 NEPHROLOGY PROGRESS NOTE SUBJECTIVE: Overnight, he continues to feel much better. At this point, he is eager to go home as he does not have any nausea, vomiting, abdominal pain, chest pain, diarrhea or really any symptoms. OBJECTIVE: VITAL SIGNS: Blood pressure is 132/82, pulse rate 69, temperature 36.7, 100% on room air. HEENT: Mucous membranes moist. NECK: Supple. No jugular venous distention. CHEST: Bilateral clear to auscultation. CARDIOVASCULAR: S1, S2 regular. ABDOMEN: Soft, nontender. EXTREMITIES: Shows no edema. LABORATORY TESTS: From this morning shows sodium is 130, potassium 3.6. Renal function otherwise normal. Magnesium normal. Calcium and phosphorus normal. ASSESSMENT AND PLAN: A 39-year-old male admitted with gastrointestinal symptoms associated with electrolyte imbalance, which included hyponatremia, hypokalemia and hypophosphatemia. RECOMMENDATIONS: Sodium this morning is 130. With the use of D5 and DDAVP, the initial fast rate of correction has been corrected and at this time, the rate of correction is pretty good. Change the D5 water to normal saline and run at 80 mL per hour. Repeat BMP later today. If the sodium is acceptable, he is stable for discharge from renal standpoint. Now that he is eating normal diet, I expect him to have no major issues with electrolytes. It does not appear he needs to be on potassium or a phosphorus supplementation as an outpatient, now that he is eating normal diet.
[2020-03-08 15:48] LABS: BUN Creatinine Ratio 8.1 (10-20); Calcium 9.5 mg/dl (8.5-10.1); Creatinine Clr Calc Pharmacy 106.4 ml/min
[2020-03-08 15:51] LABS: Potassium 4.9 mmol/L (3.5-5.1)
--- NOTE | 2020-03-08 16:18 | Discharge Summary ---
Date of Service March 08, 2020 Admission HPI Per Admitting Provider History obtained from patient and records. Medical history significant for DM 2 on oral medications, hypothyroidism, hyperlipidemia. This morning, patient woke up with minimal epigastric discomfort followed by nausea and multiple episodes of emesis. Could not keep anything down. Not related to food intake. No diarrhea. No known sick contacts, recent out-of-town travel, unusual food intake. No prior episodes. Low-grade fever. No chest pain, no S OB, no cough symptoms.. Medical History as above Surgical History : None Family History : Prostate cancer, ovarian cancer, diabetes Personal/Social history : Non-smoker, no EtOH intake, insurance sales Admission Exam Per Admitting Provider GENERAL: Comfortable, obese, pleasant, no respiratory distress SKIN: Normal color, warm HEENT: [place] palpebral conjunctivae, no ptosis, dry buccal mucosa NECK : Supple, short neck, no tenderness CHEST : CTA, no tenderness HEART : RRR, no obvious murmurs ABDOMEN: Some distention, minimal epigastric tenderness EXTREMITIES : No LE swelling/tenderness, no other conspicuous deformities noted NEUROLOGIC : Coherent, no facial asymmetry, no other gross focality Principal Diagnosis Hyponatremia due to dehydration secondary to emesis Electrolyte abnormalities Discharge Exam GENERAL: Young obese, pleasant, male, sitting up in the chair, in no acute distress HEENT: Normocephalic, atraumatic, EOMI, PERRL, [place] palpebral conjunctivae, no ptosis NECK : Supple, short neck, no tenderness CHEST : CTAB, no wheezing, rhonchi or crackles HEART : RRR, no obvious murmurs ABDOMEN: Positive bowel sounds, soft, obese, nontender to palpation, some distention EXTREMITIES : No LE swelling/tenderness, moves extremities spontaneously SKIN: Normal color, warm, dry NEURO/ PSYCH : Alert and oriented x3, answers questions appropriately, no facial asymmetry, speech fluent, moves extremities spontaneously and without difficulty Discharge Data Allergies Allergy/AdvReac Type Severity Reaction Status Date / Time iodine Allergy Rash Verified 03/06/20 20:14 Consultations 03/06/20 19:44 ED Decision to Admit Stat 03/07/20 07:03 Consult Nephrology Routine Ordered Studies 03/06/20 18:42 CT abd pelvis IV con only Stat IMPRESSION: 1. Normal appendix. No bowel obstruction. No bowel wall thickening. 2. Mild bladder wall thickening. This is likely due to underdistention although could be correlated with urinalysis. 3. Probable fatty infiltration of the liver. Hospital Course (1) Hyponatremia: Hypovolemic hyponatremia secondary to acute viral gastritis Sodium 120 at 6 PM on March 06, sodium increased to 135 next morning. Hyponatremia work-up Serum osmolality of 252, urine osmolality of 69 and urine sodium of 15. Careful correction of sodium Nephrology consulted - sodium level overcorrected, target sodium should be around 126. Give DDAVP 2 MCG once, give D5 water at 250 mL's per hour. Repeat BMP. -Sodium decreased to 132 (03/07 PM), and this morning sodium is 130 (03/08/20) -Per nephrology, will switch to normal saline, and recheck BMP in the afternoon if stable, patient okay to DC home Hypokalemia, hypomagnesemia, hypophosphatemia secondary to GI illness Replace electrolytes Supportive management for viral illness for now Medical telemetry Situational hypertension, cont. to monitor DM 2 on oral medications, well-controlled as of recent outpatient hemoglobin A1c of 5.6 every 2019 ISS BG goal 140-180, update hemoglobin A1c Hypothyroidism, euthyroid as of outpatient TSH from last year - current TSH 2.39 Hyperlipidemia on statin Rx Total Time Total Time Spent Total Time Spent (In Minutes): 40 Total Time Includes: Examination of the Patient, Discharge Planning, Medication Reconciliation and Communication With Other Providers Discharge Plan Discharge Items Patient Disposition: Home - Self-Care Reason For Visit: HYPONATREMIA, DC COVID ISOL PREC Discharge Diagnosis: Hyponatremia due to dehydration secondary to emesis Activity: Resume your previous activity Non-emergency contact: Primary Care Provider Call non-emergency contact if: you have any medication questions and your symptoms worsen Follow-up/Referrals: Dhruv Portillo MD [Primary Care Provider] - 03/12/20 10:40 am (03/12/2020 10:40 AM Provider Carleen Murillo PA-C Department [facility] ) Diet: Carb Consistent or DM2 and Low Fat Addtl Attending Provider Instructions: Follow-up with your primary care doctor, appointment was scheduled for you for March 12. Pending Studies at Discharge: No Stand-Alone Forms: [employer], Smoking Cessation Medications and DC Order Prescriptions: Continued multivitamin Tablet 1 tab PO DAILY RF: 0 atorvastatin [Lipitor] 10 mg tablet 10 mg PO DAILY RF: 0 levothyroxine 25 mcg tablet 25 mcg PO DAILY RF: 0 ferrous sulfate [Iron (ferrous sulfate)] 325 mg (65 mg iron) Tablet 0 mg PO DAILY RF: 0 vitamin B complex Tablet 1 tab PO DAILY RF: 0 metformin 500 mg tablet extended release 24 hr 500 mg PO DAILY RF: 0 cinnamon bark [Cinnamon] 500 mg Capsule 500 mg PO DAILY RF: 0 cholecalciferol (vitamin D3) [Vitamin D3] 25 mcg (1,000 unit) Tablet 25 mcg PO DAILY RF: 0 diclofenac sodium [Voltaren] 1 % gel 4 g TOPICAL QID PRN (Reason: Pain) RF: 0 Trulicity 0.75 mg/0.5 mL pen injector 0.75 mg SUBCUT WK RF: 0 magnesium oxide 400 mg magnesium Tablet 400 mg PO DAILY RF: 0 Potassium Tab 99 mg PO DAILY RF: 0 Discharge Orders: Discharge Order (Routine); Ordered 03/08/20 Ordered By: Ladarius Guzman Admission Data Admit Date/Time: 03/06/20 20:43 Attending Provider: Ladarius Guzman Admit Provider: Bright Medina Primary Care Provider: Dhruv Portillo Other Providers: Bright Medina ; Shantel Burns ; Tuan Pablo Elissa R. ; Mireya Rodriguez Japheth E.
== END 2020-03-08 17:04 | disposition home or self-care (01) | DRG 392 ==
LOC: ED 17:26 → SUATTDRO 20:43 → 2N 20:43